=== PATIENT | female | born 1960 | race Caucasian/White ===

== ENCOUNTER 2016-09-15 16:06 | Emergency (ER) | payer BC ==
[2016-09-15 16:13] VITALS: TEMP 97.9
[2016-09-15] MEDS ORDERED: FAMOTIDINE 20 MG/2 ML VIAL IV STA (16:20)
[2016-09-15] MEDS ORDERED: methylPREDNISolone SOD SUCCI 125 MG/2 ML VIAL IV STA (16:20)
--- NOTE | 2016-09-15 16:23 | ED ---
General Adult HPI - General Chief complaint: Allergic Reaction Stated complaint: Allergic Reaction Time Seen by Provider: 09/15/16 16:17 Source: patient, RN notes reviewed Mode of arrival: wheelchair Limitations: no limitations - History of Present Illness Initial comments: Patient is a 56-year-old female who presents emergency room today with a chief complaint of possible ALLERGIC reaction. She does admit that she's been on clindamycin for sinus infection over the last 4 days. Patient does admit that she began feeling chills earlier today and a "burning" type sensation in her back. She states she's had similar ALLERGIC reactions to antibiotics in the past. Patient states she did take 2 tabs of Benadryl and it showed Benadryl prior to arrival. She admits that she did give herself her EpiPen but is unsure if the entire dose was injected as is the first time that she had to use this type. Patient denies any other complaints or symptoms at this time. Patient denies any recent fever, chills, shortness of breath, chest pain, back pain, abdominal pain, nausea or vomiting, numbness or tingling, dysuria or hematuria, constipation or diarrhea, headaches or visual changes, or any other complaints. - Related Data Home Medications Medication Instructions Recorded Confirmed Mometasone/Formoterol [Dulera 100 2 puff INHALATION DAILY 09/15/16 09/15/16 Mcg/5 Mcg Inhaler] Previous Rx's Medication Instructions Recorded EPINEPHrine [Epipen 2-Subhash] 0.3 mg IM ONCE PRN #1 ml 09/15/16 methylPREDNISolone Dose Pack 4 mg PO DIRECTED #21 package 09/15/16 [Medrol Dose Pack] Allergies Allergy/AdvReac Type Severity Reaction Status Date / Time sulfamethoxazole Allergy Anaphylaxis Verified 09/15/16 16:13 [From Bactrim] trimethoprim [From Bactrim] Allergy Anaphylaxis Verified 09/15/16 16:13 Review of Systems ROS Statement: Those systems with pertinent positive or pertinent negative responses have been documented in the HPI. ROS Other: All systems not noted in ROS Statement are negative. Past Medical History Past Medical History: No Reported History History of Any Multi-Drug Resistant Organisms: None Reported Additional Past Surgical History / Comment(s): nasal Past Psychological History: No Psychological Hx Reported Smoking Status: Never smoker Past Alcohol Use History: Occasional Past Drug Use History: None Reported General Exam - General Exam Comments Initial Comments: General: The patient is awake and alert, in no distress, Anxious Eye: Pupils are equal, round and reactive to light, extra-ocular movements are intact. No nystagmus. There is normal conjunctiva bilaterally. No signs of icterus. Ears, nose, mouth and throat: There are moist mucous membranes and no oral lesions. Neck: The neck is supple, there is no tenderness or JVD. Cardiovascular: There is a regular rate and rhythm. No murmur, rub or gallop is appreciated. Respiratory: Lungs are clear to auscultation, respirations are non-labored, breath sounds are equal. No wheezes, stridor, rales, or rhonchi. Musculoskeletal: Normal ROM, no tenderness. Strength 5/5. Sensation intact. Pulses equal bilaterally 2+. Neurological: A&O x 3. CN II-XII intact, There are no obvious motor or sensory deficits. Coordination appears grossly intact. Speech is normal. Skin: Skin is warm and dry and no rashes or lesions are noted. Psychiatric: Cooperative, appropriate mood & affect, normal judgment. Limitations: no limitations Course Vital Signs 09/15/16 09/15/16 16:09 17:24 Temperature 97.9 F Pulse Rate 103 H 94 Respiratory 22 18 Rate Blood Pressure 119/69 106/58 O2 Sat by Pulse 97 98 Oximetry Medical Decision Making - Medical Decision Making Patient reexamined at this time shows no signs of distress. Patient feeling much better here in the emergency room. Vitals are stable. Patient will be discharged home. She is advised continue Benadryl every 6 hours to tabs. She is advised to use Pepcid [id number] 20 mg twice a day. Patient will be given a prescription for steroids to use if symptoms persist. She does have an appointment with her family doctor tomorrow. Patient also given a prescription for her EpiPen. She is advised return here to the emergency room symptoms return or increase or worsen or for any other concerns. A family member at bedside state understanding and are in agreement. Disposition Clinical Impression: Allergic reaction Disposition: HOME SELF-CARE Condition: Good Instructions: General Allergic Reaction (ED) Additional Instructions: Please continue Benadryl 2 tabs every 6 hours. Please use Pepcid 20 mg twice a day. Please use steroids as discussed and follow-up family doctor with scheduled appointment tomorrow. Please return here to the emergency room symptoms increase or worsen or for any other concerns. Prescriptions: EPINEPHrine [Epipen 2-Subhash] 0.3 mg IM ONCE PRN #1 ml PRN Reason: Allergic Reaction methylPREDNISolone Dose Pack [Medrol Dose Pack] 4 mg PO DIRECTED #21 package Time of Disposition: 17:35
[2016-09-15 17:25] VITALS: BP 106/58; PULSE 94; RESP 18
== END 2016-09-15 17:42 | disposition home or self-care (01) ==
LOC: EC 16:06
DX: T78.40XA Allergy, unspecified, initial encounter (principal); X58.XXXA Exposure to other specified factors, initial encounter; Z88.2 Allergy status to sulfonamides; Z88.1 Allergy status to other antibiotic agents
CPT/HCPCS: 99283; 96374; 96375; J2930

== ENCOUNTER → 2018-07-26 | Outpatient (CLI) | payer BC ==
[2018-07-26 11:16] LABS: Basophils # (A) 0.1 k/uL (0-0.2); Basophils % (A) 1 %; Eosinophils # (A) 0.4 k/uL (0-0.7); Eosinophils % (A) 5 %; HCT 42.7 % (34.0-46.0); HGB 13.7 gm/dL (11.4-16.0); Lymphocytes # (A) 1.6 k/uL (1.0-4.8); Lymphocytes % (A) 19 %; MCH 30.6 pg (25.0-35.0); MCV 95.4 fL (80.0-100.0); Mean Platelet Volume 7.3; Monocytes # (A) 0.4 k/uL (0-1.0); Monocytes % (A) 4 %; Neutrophils # (A) 5.9 k/uL (1.3-7.7); Neutrophils % (A) 70 %; Platelet Count 270 k/uL (150-450); RBC 4.48 m/uL (3.80-5.40); RDW 13.1 % (11.5-15.5); WBC 8.4 k/uL (3.8-10.6)
[2018-07-26 12:51] LABS: Erythrocyte Sedimentation Rate 6 mm/hr (0-20)
[2018-07-26 16:41] LABS: Rheumatoid Factor 7 IU/mL (0-15)
== END | disposition home or self-care (01) ==
LOC: LABWHC1 09:29
PROVIDERS: ATTEND Otolaryngology
DX: R53.83 Other fatigue (principal); T50.905A Adverse effect of unspecified drugs, medicaments and biological substances, initial encounter
CPT/HCPCS: 36415; 85025; 85652; 86038; 86235; 86431

== ENCOUNTER → 2018-10-12 | Outpatient (CLI) | payer BC ==
[2018-10-12 11:12] LABS: HCT 43.7 % (34.0-46.0); HGB 13.5 gm/dL (11.4-16.0); Hypochromasia Slight; MCH 29.8 pg (25.0-35.0); Mean Platelet Volume 7.3; Platelet Count 274 k/uL (150-450); RBC 4.55 m/uL (3.80-5.40); WBC 8.2 k/uL (3.8-10.6)
[2018-10-12 17:40] LABS: Potassium 4.3 mmol/L (3.5-5.5)
== END | disposition home or self-care (01) ==
LOC: LABWHC1 10:13
PROVIDERS: ATTEND Internal Medicine Cardiovascular Disease
DX: R00.2 Palpitations (principal)
CPT/HCPCS: 36415; 80051; 82565; 84443; 84520; 85027

== ENCOUNTER → 2019-01-06 | Outpatient (CLI) | payer BC ==
[2019-01-06 12:43] LABS: Basophils # (A) 0.1 k/uL (0-0.2); Basophils % (A) 1 %; Eosinophils # (A) 0.6 k/uL (0-0.7); Eosinophils % (A) 9 %; HGB 13.3 gm/dL (11.4-16.0); Lymphocytes # (A) 1.7 k/uL (1.0-4.8); Lymphocytes % (A) 26 %; MCH 29.4 pg (25.0-35.0); MCHC 30.9 g/dL (31.0-37.0); MCV 95.1 fL (80.0-100.0); Mean Platelet Volume 7.2; Monocytes # (A) 0.4 k/uL (0-1.0); Monocytes % (A) 6 %; Neutrophils # (A) 3.7 k/uL (1.3-7.7); Neutrophils % (A) 57 %; Platelet Count 254 k/uL (150-450); RBC 4.52 m/uL (3.80-5.40); RDW 13.6 % (11.5-15.5); WBC 6.5 k/uL (3.8-10.6)
== END | disposition home or self-care (01) ==
LOC: LABWHC1 11:59
PROVIDERS: ATTEND Allergy & Immunology
DX: J45.20 Mild intermittent asthma, uncomplicated (principal)
CPT/HCPCS: 36415; 83520; 85025

== ENCOUNTER 2020-08-09 17:35 | Emergency (ER) | payer BC ==
[2020-08-09 17:41] VITALS: RESP 18
--- NOTE | 2020-08-09 18:24 | ED ---
General Adult HPI - General Chief complaint: GI Bleed Stated complaint: Blood in stool/Weakness Time Seen by Provider: 08/09/20 17:43 Source: patient, RN notes reviewed, old records reviewed Mode of arrival: ambulatory Limitations: no limitations - History of Present Illness Initial comments: 60-year-old female presenting for evaluation of diffuse abdominal pain and rectal bleeding. Patient states she has had intermittent bright red rectal bleeding for the past 6 weeks. She was seen by her primary care physician and had laboratory testing done yesterday. She states that she is planning to receive a colonoscopy on an outpatient basis she does not have this scheduled. She denies anticoagulation. Denies fever. She does have a 10 pound weight loss but states this was intentional. No previous history of colon cancer. She has a remote history of colitis. - Related Data Home Medications Medication Instructions Recorded Confirmed Albuterol Nebulized [Ventolin 2.5 mg INHALATION RT-QID PRN 08/09/20 08/09/20 Nebulized] Denosumab [Prolia] 60 mg SQ Q180D 08/09/20 08/09/20 EPINEPHrine [Epipen 2-Subhash] 0.3 mg IM ONCE PRN 08/09/20 08/09/20 Fluticasone Nasal [place] [Flonase 2 spr EA NOSTRIL DAILY 08/09/20 08/09/20 Nasal [place]] Mometasone/Formoterol [Dulera 200 2 puff INHALATION RT-BID 08/09/20 08/09/20 Mcg-5 Mcg Inhaler] Pentosan Polysulfate Sodium 100 mg PO DAILY 08/09/20 08/09/20 [Elmiron] Pentosan Polysulfate Sodium 200 mg PO HS 08/09/20 08/09/20 [Elmiron] Allergies Allergy/AdvReac Type Severity Reaction Status Date / Time basil Allergy Allergy Verified 08/09/20 18:47 Testing cabbage Allergy Allergy Verified 08/09/20 18:47 Testing Cauliflower Allergy Allergy Verified 08/09/20 18:47 Testing clindamycin Allergy Anaphylaxis Verified 08/09/20 18:47 coconut Allergy Allergy Verified 08/09/20 18:47 Testing garlic Allergy Allergy Verified 08/09/20 18:47 Testing mold Allergy Cough Verified 08/09/20 18:47 Penicillins Allergy Anaphylaxis Verified 08/09/20 18:47 pollen extracts Allergy Cough Verified 08/09/20 18:47 ragweed pollen Allergy Cough Verified 08/09/20 18:47 shellfish derived [Crab] Allergy Allergy Verified 08/09/20 18:47 Testing starch Allergy Allergy Verified 08/09/20 18:47 Testing Sulfa (Sulfonamide Allergy Anaphylaxis Verified 08/09/20 18:47 Antibiotics) sulfamethoxazole Allergy Anaphylaxis Verified 08/09/20 18:47 [From Bactrim] trimethoprim [From Bactrim] Allergy Anaphylaxis Verified 08/09/20 18:47 walnut Allergy Allergy Verified 08/09/20 18:47 Testing yeast, dried Allergy Allergy Verified 08/09/20 18:47 Testing [place] leaf Allergy Allergy Uncoded 08/09/20 18:47 Testing travon Allergy Allergy Uncoded 08/09/20 18:47 Testing caulk Allergy Allergy Uncoded 08/09/20 18:47 Testing pullularia Allergy Allergy Uncoded 08/09/20 18:47 Testing rhizopus Allergy Allergy Uncoded 08/09/20 18:47 Testing gu[place] cheese Allergy Allergy Uncoded 08/09/20 18:47 Testing white potato Allergy Allergy Uncoded 08/09/20 18:47 Testing Review of Systems ROS Statement: Those systems with pertinent positive or pertinent negative responses have been documented in the HPI. ROS Other: All systems not noted in ROS Statement are negative. Past Medical History Past Medical History: Asthma History of Any Multi-Drug Resistant Organisms: None Reported Additional Past Surgical History / Comment(s): nasal Past Psychological History: No Psychological Hx Reported Smoking Status: Never smoker Past Alcohol Use History: Occasional Past Drug Use History: None Reported General Exam Limitations: no limitations General appearance: alert, in no apparent distress Head exam: Present: atraumatic, normocephalic Eye exam: Present: normal appearance, PERRL ENT exam: Present: normal exam Neck exam: Present: normal inspection. Absent: tenderness, meningismus Respiratory exam: Present: normal lung sounds bilaterally. Absent: respiratory distress, wheezes Cardiovascular Exam: Present: regular rate, normal rhythm GI/Abdominal exam: Present: soft. Absent: distended, tenderness Rectal exam: Present: normal inspection. Absent: black stool, bloody stool Extremities exam: Present: normal inspection, normal capillary refill. Absent: pedal edema Neurological exam: Present: alert, oriented X3, CN II-XII intact. Absent: motor sensory deficit Psychiatric exam: Present: normal affect, normal mood Skin exam: Present: warm, dry, intact. Absent: cyanosis, diaphoretic Course Vital Signs 08/09/20 17:37 Temperature 98.1 F Pulse Rate 78 Respiratory 18 Rate Blood Pressure 117/79 O2 Sat by Pulse 100 Oximetry Medical Decision Making - Medical Decision Making 60-year-old female with 6 weeks of intermittent rectal bleeding, previous history of colitis and generalized abdominal pain. Patient well-appearing with stable vitals. Rectal exam reveals no acute bleeding, no melanotic stool, no hemorrhoids. She has a stable hemoglobin at 13.2, normal CBC, CT is performed which shows cholelithiasis with no other acute findings. I do recommend this patient follow-up with gastroenterology for colonoscopy. She will return to emergency department with worsening or changing symptoms. - Lab Data Result diagrams: 08/09/20 18:11 08/09/20 18:11 Lab Results 08/09/20 08/09/20 08/09/20 Range/Units 16:09 18:11 18:11 WBC 10.1 (3.8-10.6) k/uL RBC 4.23 (3.80-5.40) m/uL Hgb 13.2 (11.4-16.0) gm/dL Hct 39.7 (34.0-46.0) % MCV 93.7 (80.0-100.0) fL MCH 31.1 (25.0-35.0) pg MCHC 33.2 (31.0-37.0) g/dL RDW 12.7 (11.5-15.5) % Plt Count 262 (150-450) k/uL MPV 7.7 Neutrophils % 71 % Lymphocytes % 19 % Monocytes % 4 % Eosinophils % 4 % Basophils % 0 % Neutrophils # 7.2 (1.3-7.7) k/uL Lymphocytes # 1.9 (1.0-4.8) k/uL Monocytes # 0.4 (0-1.0) k/uL Eosinophils # 0.4 (0-0.7) k/uL Basophils # 0.0 (0-0.2) k/uL PT 10.3 (9.0-12.0) sec INR 1.0 (<1.2) APTT 21.1 L (22.0-30.0) sec Sodium (137-145) mmol/L Potassium (3.5-5.1) mmol/L Chloride (98-107) mmol/L Carbon Dioxide (22-30) mmol/L Anion Gap mmol/L BUN (7-17) mg/dL Creatinine (0.52-1.04) mg/dL Est GFR (CKD-EPI)AfAm (>60 ml/min/1.73 sqM) Est GFR (CKD-EPI)NonAf (>60 ml/min/1.73 sqM) Glucose (74-99) mg/dL Plasma Lactic Acid Aldo (0.7-2.0) mmol/L Calcium (8.4-10.2) mg/dL Magnesium (1.6-2.3) mg/dL Total Bilirubin (0.2-1.3) mg/dL AST (14-36) U/L ALT (4-34) U/L Alkaline Phosphatase (38-126) U/L Total Protein (6.3-8.2) g/dL Albumin (3.5-5.0) g/dL Blood Type B Positive Blood Type Confirm Blood Type Recheck No Previous Record Bld Type Recheck Status CABO Indicated Antibody Screen NEGATIVE Spec Expiration Date 08/12/2020 - 230808/09/20 08/09/20 08/09/20 Range/Units 18:11 18:11 18:15 WBC (3.8-10.6) k/uL RBC (3.80-5.40) m/uL Hgb (11.4-16.0) gm/dL Hct (34.0-46.0) % MCV (80.0-100.0) fL MCH (25.0-35.0) pg MCHC (31.0-37.0) g/dL RDW (11.5-15.5) % Plt Count (150-450) k/uL MPV Neutrophils % % Lymphocytes % % Monocytes % % Eosinophils % % Basophils % % Neutrophils # (1.3-7.7) k/uL Lymphocytes # (1.0-4.8) k/uL Monocytes # (0-1.0) k/uL Eosinophils # (0-0.7) k/uL Basophils # (0-0.2) k/uL PT (9.0-12.0) sec INR (<1.2) APTT (22.0-30.0) sec Sodium 138 (137-145) mmol/L Potassium 4.5 (3.5-5.1) mmol/L Chloride 110 H (98-107) mmol/L Carbon Dioxide 24 (22-30) mmol/L Anion Gap 4 mmol/L BUN 15 (7-17) mg/dL Creatinine 0.60 (0.52-1.04) mg/dL Est GFR (CKD-EPI)AfAm >90 (>60 ml/min/1.73 sqM) Est GFR (CKD-EPI)NonAf >90 (>60 ml/min/1.73 sqM) Glucose 111 H (74-99) mg/dL Plasma Lactic Acid Aldo 1.0 (0.7-2.0) mmol/L Calcium 9.6 (8.4-10.2) mg/dL Magnesium 2.3 (1.6-2.3) mg/dL Total Bilirubin 0.3 (0.2-1.3) mg/dL AST 24 (14-36) U/L ALT 16 (4-34) U/L Alkaline Phosphatase 62 (38-126) U/L Total Protein 7.0 (6.3-8.2) g/dL Albumin 4.3 (3.5-5.0) g/dL Blood Type Blood Type Confirm B Positive Blood Type Recheck Bld Type Recheck Status Antibody Screen Spec Expiration Date Disposition Clinical Impression: Abdominal pain, Rectal bleeding Disposition: HOME SELF-CARE Condition: Good Instructions (If sedation given, give patient instructions): Abdominal Pain (ED), Rectal Bleeding (ED) Is patient prescribed a controlled substance at d/c from ED?: No Referrals: Omar Durbin MD [Primary Care Provider] - 1-2 days Nakul Koenig MD [STAFF PHYSICIAN] - 1-2 days Time of Disposition: 19:48
[2020-08-09 18:31] LABS: Basophils % (A) 0 %; Eosinophils # (A) 0.4 k/uL (0-0.7); Eosinophils % (A) 4 %; HCT 39.7 % (34.0-46.0); HGB 13.2 gm/dL (11.4-16.0); Lymphocytes # (A) 1.9 k/uL (1.0-4.8); Lymphocytes % (A) 19 %; MCH 31.1 pg (25.0-35.0); MCHC 33.2 g/dL (31.0-37.0); MCV 93.7 fL (80.0-100.0); Mean Platelet Volume 7.7; Monocytes # (A) 0.4 k/uL (0-1.0); Monocytes % (A) 4 %; Neutrophils # (A) 7.2 k/uL (1.3-7.7); Neutrophils % (A) 71 %; Platelet Count 262 k/uL (150-450); RBC 4.23 m/uL (3.80-5.40); RDW 12.7 % (11.5-15.5); WBC 10.1 k/uL (3.8-10.6)
[2020-08-09 18:45] LABS: ALT 16 U/L (4-34); AST 24 U/L (14-36); African American GFR (CKD) >90 (>60 ml/min/1.73 sqM); Albumin 4.3 g/dL (3.5-5.0); Alkaline Phosphatase 62 U/L (38-126); Anion Gap 4 mmol/L; Blood Urea Nitrogen 15 mg/dL (7-17); Calcium 9.6 mg/dL (8.4-10.2); Carbon Dioxide 24 mmol/L (22-30); Chloride 110 mmol/L (98-107); Glucose 111 mg/dL (74-99); Magnesium 2.3 mg/dL (1.6-2.3); Non-African American GFR(CKD) >90 (>60 ml/min/1.73 sqM); Potassium 4.5 mmol/L (3.5-5.1); Sodium 138 mmol/L (137-145); Total Bilirubin 0.3 mg/dL (0.2-1.3)
[2020-08-09 18:57] LABS: Prothrombin Time 10.3 sec (9.0-12.0)
[2020-08-09 18:58] LABS: Partial Thromboplastin Time 21.1 sec (22.0-30.0)
--- NOTE | 2020-08-09 19:42 | CT ---
EXAMINATION TYPE: CT abdomen pelvis w con DATE OF EXAM: 08/09/2020 COMPARISON: None HISTORY: Abdomen pain, rectal bleeding. CT DLP: 724.7 mGycm Automated exposure control for dose reduction was used. CONTRAST: Performed with IV Contrast, patient injected with 100 mL of Isovue 300. Images obtained from the diaphragm to the floor the pelvis with IV contrast. There is minimal subsegmental atelectasis left lung base. Heart size is normal. There is no pericardi al effusion. There are small hepatic cysts in the anterior right lobe of the liver. There is 2.5 cm cyst in the le ft lobe of the liver. There appears to be enlarged cholesterol gallstones. Spleen is intact. Stomach is intact. There is no evidence of pancreatic mass. The bile ducts are not dilated. There is no adrenal mass. Kidneys show satisfactory contrast opacification. There is no hydronephrosi s. Delayed images show normal renal excretion. There is no retroperitoneal adenopathy. Bladder disten ds smoothly. There is no inguinal hernia. There is no free fluid in the pelvis. There is no evidence of a pelvic mass. There is no mesenteric edema. There is no ascites or free air. There is no bowel obstruction. I see n o intestinal wall thickening. Appendix appears normal. Uterus is retroverted. Lumbar vertebra have no rmal alignment. There is no compression fracture. Bony pelvis appears intact. IMPRESSION: Cholelithiasis. No dilated ducts. No acute abnormality of the abdomen pelvis. I do not see a cause fo r rectal bleeding.
[2020-08-09 20:14] VITALS: BP 127/74; PULSE 61; TEMP 98.2
== END 2020-08-09 20:14 | disposition home or self-care (01) ==
LOC: EC 17:35
DX: K62.5 Hemorrhage of anus and rectum (principal); K80.20 Calculus of gallbladder without cholecystitis without obstruction; J45.909 Unspecified asthma, uncomplicated; Z79.51 Long term (current) use of inhaled steroids; Z79.899 Other long term (current) drug therapy; Z91.018 Allergy to other foods; Z88.1 Allergy status to other antibiotic agents; Z91.048 Other nonmedicinal substance allergy status; Z88.0 Allergy status to penicillin; Z91.013 Allergy to seafood; Z88.2 Allergy status to sulfonamides; Z91.09 Other allergy status, other than to drugs and biological substances
CPT/HCPCS: 36415; 86900; 86901; 80053; 83605; 83735; 85025; 85610; 85730; 86850; 74177; 99284; Q9967

== ENCOUNTER 2020-09-12 09:29 | Day surgery (SDC) | payer BC ==
[2020-09-11 08:52] VITALS: BMI 23.3
[~2020-09-12 09:29] MED LIST: LACTATED RINGERS 1,000 ML IV SCH; LIDOCAINE 1% (10MG/ML) FOR IV START INTRADERMA PRN
[2020-09-12] MEDS ORDERED: LACTATED RINGERS 1,000 ML IV ONE (10:00)
[2020-09-12] MEDS ORDERED: LIDOCAINE 1% (10MG/ML) FOR IV START INTRADERMA ONE (10:00)
[2020-09-12 10:01] VITALS: RESP 16; TEMP 97.4
[2020-09-12] MEDS ORDERED: LIDOCAINE 1% INJ 10MG/ML (20 ML MDV) ONE (10:23)
[2020-09-12] MEDS ORDERED: PROPOFOL 10 MG/ML 20 ML VIAL IV ONE (10:23)
--- NOTE | 2020-09-12 10:41 | P.PCN ---
Date of Procedure: 09/12/20 Procedure(s) Performed: Brief history: Patient is a pleasant 60-year-old white female scheduled for an elective upper endoscopy as well as colonoscopy as a part of evaluation of GERD and Hemoccult- positive stool. Procedure performed: Esophagogastroduodenoscopy biopsy Colonoscopy Preoperative diagnosis: GERD Hemoccult-positive stool [place] [facility] [place]: After informed consent was obtained from the patient was brought into the endoscopy unit and IV sedation was administered by anesthesia under continuous monitoring. Initially upper endoscopy was done. The Olympus GF 160 video endoscope was inserted inserted into the mouth and esophagus intubated without any difficulty and was gradually advanced into the stomach and duodenum and carefully examined. The bulb and second part of the duodenum appeared normal. The scope was then withdrawn into the stomach adequately insufflated with air and upon careful examination the antrum and body, cardia and fundus appeared normal. The scope was then withdrawn into the esophagus. The GE junction was located at 40 cm to the incisors. Small sliding type hiatal hernia noted.. There was a 2 mm tongue of Lima's appearing mucosa just proximal to the GE junction which was biopsied. Rest of the esophagus appeared normal. Patient tolerated the procedure well. At this time the patient continued to remain sedation. Initial digital rectal examination was normal. Olympus CF 160 video colonoscope was then inserted into the rectum and gradually advanced to the cecum without any difficulty. Careful examination was performed as the scope was gradually being withdrawn. The prep was excellent. The cecum, ascending colon, transverse colon, descending colon, sigmoid colon and rectum appeared normal. Retroflexion was performed in the rectum and no lesions were noted. Patient tolerated the procedure well. Impression: 1. Upper endoscopy revealed a small hiatal hernia and a 2 mm tongue of Lima's appearing mucosa that was biopsied. 2 Colonoscopy was essentially within normal limits with no evidence of colitis or colorectal neoplasia Recommendations: Findings of this examination were discussed with the patient as well as her family. She was advised to continue with Prilosec 20 mg daily and follow antireflux measures. She will follow with the biopsy results. She was advised to have a repeat screening colonoscopy in 10 years.
[2020-09-12 11:01] VITALS: BP 102/65; PULSE 59
== END 2020-09-12 11:14 | disposition home or self-care (01) ==
LOC: ORWHC2ENDO 09:29
PROVIDERS: ATTEND Internal Medicine Gastroenterology
DX: K20.0 Eosinophilic esophagitis (principal); K44.9 Diaphragmatic hernia without obstruction or gangrene; J45.909 Unspecified asthma, uncomplicated; Z79.51 Long term (current) use of inhaled steroids; Z79.899 Other long term (current) drug therapy
CPT/HCPCS: 88305; 45378; 43239; J2001; J2704

== ENCOUNTER 2020-10-23 09:14 | Observation (INO) | payer BC ==
[2020-10-23] MEDS ORDERED: ASPIRIN 81 MG PO STA (09:43)
--- NOTE | 2020-10-23 09:50 | ED ---
General Adult HPI - General Chief complaint: Chest Pain Stated complaint: Chest discomfort Time Seen by Provider: 10/23/20 09:24 Source: patient, RN notes reviewed Mode of arrival: ambulatory Limitations: no limitations - History of Present Illness Initial comments: Patient is a pleasant 60-year-old female presenting to the emergency Department with complaints of chest discomfort. Onset of symptoms was around 7:30 this morning. Patient was not exerting herself. Patient had discomfort in her chest that was difficult to describe, discomfort was rated 5/10. No associated dyspnea, nausea, or diaphoresis. Patient did feel lightheaded at that time. Patient only now feels a little bit fatigued. No history of similar symptoms previously. Patient does state that sometimes she gets left leg discomfort, somewhat chronically associated with ALLERGIES. - Related Data Home Medications Medication Instructions Recorded Confirmed Denosumab [Prolia] 60 mg SQ Q180D 08/09/20 10/23/20 EPINEPHrine [Epipen 2-Subhash] 0.3 mg IM ONCE PRN 08/09/20 10/23/20 Mometasone/Formoterol [Dulera 200 2 puff INHALATION RT-BID 08/09/20 10/23/20 Mcg-5 Mcg Inhaler] Pentosan Polysulfate Sodium 100 mg PO DAILY 08/09/20 10/23/20 [Elmiron] Pentosan Polysulfate Sodium 200 mg PO HS 08/09/20 10/23/20 [Elmiron] Cyanocobalamin (Vitamin B-12) 1,000 mcg PO DAILY 10/23/20 10/23/20 [Vitamin B-12] Famotidine [Pepcid] 20 mg PO BID 10/23/20 10/23/20 Loratadine [Alavert] 10 mg PO DAILY 10/23/20 10/23/20 Multivitamins, Thera [Multivitamin 1 tab PO DAILY 10/23/20 10/23/20 (formulary)] Allergies Allergy/AdvReac Type Severity Reaction Status Date / Time basil Allergy Allergy Verified 10/23/20 10:58 Testing cabbage Allergy Allergy Verified 10/23/20 10:58 Testing Cauliflower Allergy Allergy Verified 10/23/20 10:58 Testing clindamycin Allergy Anaphylaxis Verified 10/23/20 10:58 coconut Allergy Allergy Verified 10/23/20 10:58 Testing garlic Allergy Allergy Verified 10/23/20 10:58 Testing mold Allergy Cough Verified 10/23/20 10:58 Penicillins Allergy Anaphylaxis Verified 10/23/20 10:58 pollen extracts Allergy Cough Verified 10/23/20 10:58 ragweed pollen Allergy Cough Verified 10/23/20 10:58 shellfish derived [Crab] Allergy Allergy Verified 10/23/20 10:58 Testing starch Allergy Allergy Verified 10/23/20 10:58 Testing Sulfa (Sulfonamide Allergy Anaphylaxis Verified 10/23/20 10:58 Antibiotics) sulfamethoxazole Allergy Anaphylaxis Verified 10/23/20 10:58 [From Bactrim] trimethoprim [From Bactrim] Allergy Anaphylaxis Verified 10/23/20 10:58 walnut Allergy Allergy Verified 10/23/20 10:58 Testing yeast, dried Allergy Allergy Verified 10/23/20 10:58 Testing bay leaf Allergy Allergy Uncoded 10/23/20 10:58 Testing travon Allergy Allergy Uncoded 10/23/20 10:58 Testing caulk Allergy Allergy Uncoded 10/23/20 10:58 Testing pullularia Allergy Allergy Uncoded 10/23/20 10:58 Testing rhizopus Allergy Allergy Uncoded 10/23/20 10:58 Testing bahraini cheese Allergy Allergy Uncoded 10/23/20 10:58 Testing white potato Allergy Allergy Uncoded 10/23/20 10:58 Testing Review of Systems ROS Statement: Those systems with pertinent positive or pertinent negative responses have been documented in the HPI. ROS Other: All systems not noted in ROS Statement are negative. Constitutional: Denies: fever Eyes: Denies: eye pain ENT: Denies: ear pain Respiratory: Denies: cough Cardiovascular: Reports: as per HPI, chest pain Endocrine: Reports: fatigue Gastrointestinal: Denies: abdominal pain Genitourinary: Denies: urgency Musculoskeletal: Denies: back pain Skin: Denies: rash Neurological: Denies: weakness Past Medical History Past Medical History: Asthma Additional Past Medical History / Comment(s): BLOOD IN STOOL History of Any Multi-Drug Resistant Organisms: None Reported Additional Past Surgical History / Comment(s): nasal SX Past Anesthesia/Blood Transfusion Reactions: No Reported Reaction Past Psychological History: No Psychological Hx Reported Smoking Status: Never smoker Past Alcohol Use History: None Reported Past Drug Use History: None Reported - Past Family History Mother Family Medical History: No Reported History General Exam Limitations: no limitations General appearance: alert, in no apparent distress Head exam: Present: atraumatic Eye exam: Present: normal appearance Neck exam: Present: normal inspection Respiratory exam: Present: normal lung sounds bilaterally. Absent: chest wall tenderness Cardiovascular Exam: Present: regular rate, normal rhythm, normal heart sounds Expanded Peripheral pulses: 2+: Radial (R), Radial (L), Posterior Tibialis (R), Posterior Tibialis (L) GI/Abdominal exam: Present: soft. Absent: distended, tenderness Extremities exam: Present: calf tenderness (Minimal discomfort left calf). 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 [place] 142. QRS 106. QT 392. QTC 41. Left axis. Incomplete right bundle-branch block. No acute ST change. Medical Decision Making - Medical Decision Making Patient reevaluated and resting comfortably in bed. Patient updated on results and plan. Dr. Madrigal has been paged for admission, covering for Dr. Durbin. - Lab Data Result diagrams: 10/23/20 09:48 10/23/20 09:48 Lab Results 10/23/20 10/23/20 10/23/20 Range/Units 09:48 09:48 09:48 WBC 5.2 (3.8-10.6) k/uL RBC 4.26 (3.80-5.40) m/uL Hgb 13.1 (11.4-16.0) gm/dL Hct 39.9 (34.0-46.0) % MCV 93.8 (80.0-100.0) fL MCH 30.8 (25.0-35.0) pg MCHC 32.9 (31.0-37.0) g/dL RDW 12.5 (11.5-15.5) % Plt Count 224 (150-450) k/uL MPV 7.7 Neutrophils % 72 % Lymphocytes % 16 % Monocytes % 6 % Eosinophils % 5 % Basophils % 1 % Neutrophils # 3.8 (1.3-7.7) k/uL Lymphocytes # 0.8 L (1.0-4.8) k/uL Monocytes # 0.3 (0-1.0) k/uL Eosinophils # 0.3 (0-0.7) k/uL Basophils # 0.0 (0-0.2) k/uL PT 10.5 (9.0-12.0) sec INR 1.0 (<1.2) APTT 22.5 (22.0-30.0) sec D-Dimer 0.21 (<0.60) mg/L FEU Sodium 137 (137-145) mmol/L Potassium 4.3 (3.5-5.1) mmol/L Chloride 105 (98-107) mmol/L Carbon Dioxide 26 (22-30) mmol/L Anion Gap 6 mmol/L BUN 17 (7-17) mg/dL Creatinine 0.70 (0.52-1.04) mg/dL Est GFR (CKD-EPI)AfAm >90 (>60 ml/min/1.73 sqM) Est GFR (CKD-EPI)NonAf >90 (>60 ml/min/1.73 sqM) Glucose 91 (74-99) mg/dL Calcium 9.5 (8.4-10.2) mg/dL Magnesium 2.1 (1.6-2.3) mg/dL Total Bilirubin 0.3 (0.2-1.3) mg/dL AST 25 (14-36) U/L ALT 16 (4-34) U/L Alkaline Phosphatase 51 (38-126) U/L Troponin I (0.000-0.034) ng/mL Total Protein 6.7 (6.3-8.2) g/dL Albumin 4.2 (3.5-5.0) g/dL 10/23/20 Range/Units 09:48 WBC (3.8-10.6) k/uL RBC (3.80-5.40) m/uL Hgb (11.4-16.0) gm/dL Hct (34.0-46.0) % MCV (80.0-100.0) fL MCH (25.0-35.0) pg MCHC (31.0-37.0) g/dL RDW (11.5-15.5) % Plt Count (150-450) k/uL MPV Neutrophils % % Lymphocytes % % Monocytes % % Eosinophils % % Basophils % % Neutrophils # (1.3-7.7) k/uL Lymphocytes # (1.0-4.8) k/uL Monocytes # (0-1.0) k/uL Eosinophils # (0-0.7) k/uL Basophils # (0-0.2) k/uL PT (9.0-12.0) sec INR (<1.2) APTT (22.0-30.0) sec D-Dimer (<0.60) mg/L FEU Sodium (137-145) mmol/L Potassium (3.5-5.1) mmol/L Chloride (98-107) mmol/L Carbon Dioxide (22-30) mmol/L Anion Gap mmol/L BUN (7-17) mg/dL Creatinine (0.52-1.04) mg/dL Est GFR (CKD-EPI)AfAm (>60 ml/min/1.73 sqM) Est GFR (CKD-EPI)NonAf (>60 ml/min/1.73 sqM) Glucose (74-99) mg/dL Calcium (8.4-10.2) mg/dL Magnesium (1.6-2.3) mg/dL Total Bilirubin (0.2-1.3) mg/dL AST (14-36) U/L ALT (4-34) U/L Alkaline Phosphatase (38-126) U/L Troponin I <0.012 (0.000-0.034) ng/mL Total Protein (6.3-8.2) g/dL Albumin (3.5-5.0) g/dL - Radiology Data Radiology results: report reviewed (Left leg ultrasound negative for DVT. Popliteal cyst is present.), image reviewed (Chest x-ray reveals no acute process) Disposition Clinical Impression: Chest pain Disposition: ADMITTED IP TO THIS HOSP Is patient prescribed a controlled substance at d/c from ED?: No Referrals: Omar Durbin MD [Primary Care Provider] - 1-2 days Decision Time: 11:22
[2020-10-23 10:02] LABS: Basophils % (A) 1 %; Eosinophils # (A) 0.3 k/uL (0-0.7); Eosinophils % (A) 5 %; HCT 39.9 % (34.0-46.0); HGB 13.1 gm/dL (11.4-16.0); Lymphocytes # (A) 0.8 k/uL (1.0-4.8); Lymphocytes % (A) 16 %; MCH 30.8 pg (25.0-35.0); MCHC 32.9 g/dL (31.0-37.0); MCV 93.8 fL (80.0-100.0); Mean Platelet Volume 7.7; Monocytes # (A) 0.3 k/uL (0-1.0); Monocytes % (A) 6 %; Neutrophils # (A) 3.8 k/uL (1.3-7.7); Neutrophils % (A) 72 %; Platelet Count 224 k/uL (150-450); RBC 4.26 m/uL (3.80-5.40); RDW 12.5 % (11.5-15.5); WBC 5.2 k/uL (3.8-10.6)
[2020-10-23 10:17] LABS: D-Dimer 0.21 mg/L FEU (<0.60); Partial Thromboplastin Time 22.5 sec (22.0-30.0); Prothrombin Time 10.5 sec (9.0-12.0)
[2020-10-23 10:28] LABS: ALT 16 U/L (4-34); AST 25 U/L (14-36); African American GFR (CKD) >90 (>60 ml/min/1.73 sqM); Albumin 4.2 g/dL (3.5-5.0); Alkaline Phosphatase 51 U/L (38-126); Anion Gap 6 mmol/L; Blood Urea Nitrogen 17 mg/dL (7-17); Calcium 9.5 mg/dL (8.4-10.2); Carbon Dioxide 26 mmol/L (22-30); Chloride 105 mmol/L (98-107); Glucose 91 mg/dL (74-99); Magnesium 2.1 mg/dL (1.6-2.3); Non-African American GFR(CKD) >90 (>60 ml/min/1.73 sqM); Potassium 4.3 mmol/L (3.5-5.1); Sodium 137 mmol/L (137-145); Total Bilirubin 0.3 mg/dL (0.2-1.3); Total Protein 6.7 g/dL (6.3-8.2)
--- NOTE | 2020-10-23 10:29 | XR ---
EXAMINATION TYPE: XR chest 2V DATE OF EXAM: 10/23/2020 COMPARISON: None INDICATION: Chest pain TECHNIQUE: Frontal and lateral views of the chest are obtained. FINDINGS: The heart size is normal. The pulmonary vasculature is normal. The lungs are clear. IMPRESSION: 1. No acute pulmonary process.
--- NOTE | 2020-10-23 10:46 | US ---
EXAMINATION TYPE: US venous doppler duplex LE LT DATE OF EXAM: 10/23/2020 10:33 AM COMPARISON: NONE CLINICAL HISTORY: pain. Left leg pain SIDE PERFORMED: Left TECHNIQUE: The lower extremity deep venous system is examined utilizing real time linear array sonog mauricio with graded compression, doppler sonography and color-flow sonography. VESSELS IMAGED: Common Femoral Vein Deep Femoral Vein Greater Saphenous Vein * Femoral Vein Popliteal Vein Small Saphenous Vein * Proximal Calf Veins (* superficial vessels) Left Leg: Negative for DVT, probable Vargas's Cyst left pop fossa= 3.0 x 0.9 x 1.2 cm IMPRESSION: 1. Left lower extremity ultrasound negative for deep venous thrombosis. 2. Popliteal cyst left posterior popliteal fossa
[2020-10-23] MEDS ORDERED: NITROGLYCERIN SL TABS 0.4 MG TAB SUBLINGUAL PRN (11:22)
[2020-10-23] MEDS ORDERED: FAMOTIDINE 20 MG TAB PO SCH (21:00)
[2020-10-23] MEDS ORDERED: PENTOSAN POLYSULFATE SODIUM 100 MG PO SCH (21:00)
--- NOTE | 2020-10-23 21:57 | P.HPIM ---
History of Present Illness H&P Date: 10/23/20 Chief Complaint: Feeling unwell History of presenting complaint: This is a very pleasant 60-year-old patient of Dr. Zev Reich. Chronic stable medical conditions include asthma, hiatal hernia, Chairez's esophagus, interstitial cystitis, osteoporosis. This a.m. she was with her son just felt be at. Like as if her blood pressure dropping. Normally her blood pressure was in the lower side. Also felt a burning sensation in the middle of the chest full code half an hour. [place] a bit dizzy and lightheaded. No perspiration. Did feel a bit tired. Has slight nausea. Decided to come in to rule out a cardiac cause. Otherwise patient other active. Chronic sinus tolerance. 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 Lives alone. No smoking or alcohol. 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 BMI 23.4, reclining in bed, comfortable. EYES: Pupils equal. Conjunctiva normal. HEENT: External appearance of nose and ears normal, oral cavity grossly normal. NECK: JVD not raised; masses not palpable. HEART: First and second heart sounds are normal; no edema. LUNGS: Respiratory rate normal; clear to auscultation. ABDOMEN: Soft, nontender, liver spleen not palpable, no masses palpable. PSYCH: Alert and oriented x3; mood and affect normal. NEUROLOGICAL: Cranial nerves grossly intact; no facial asymmetry, power and sensation grossly intact. LYMPHATICS: No lymph nodes palpable in the axilla and neck INVESTIGATIONS, reviewed in the clinical context: WBC 5.2 hemoglobin 13.1 platelets 224 potassium 4.3 creatinine 0.7 Troponin I 3 negative Coronavirus [PCR]-not detected EKG tracing personally reviewed by me-normal sinus rhythm, incomplete right bundle branch block Chest x-ray film personally reviewed by me-no obvious infiltrate Assessment and plan: -This is a patient is rather pretty active presents with an episode of just not feeling right has a blood pressure draining a burning sensation in the chest about half an hour. Troponins were negative. Patient's cardiac risk factors include age. -Moderate persistent asthma. Stable. Continue Dulera -Hiatal hernia -Chronic Chairez's esophagus, on Pepcid -Interstitial cystitis Care was discussed with the patient. Home medications to be resumed. Cardiology consulted. Patient will need a stress test. Past Medical History Past Medical History: Asthma, GI Bleed Additional Past Medical History / Comment(s): Hiatal hernia, chairez's esophagus, bleeding ulcer as a teen, lower GI bleed, interstitial cystitis, osteoporosis. History of Any Multi-Drug Resistant Organisms: None Reported Additional Past Surgical History / Comment(s): 09/12/20 EGD and colonoscopy, previous colonoscopy, sinus surgery. Past Anesthesia/Blood Transfusion Reactions: No Reported Reaction Smoking Status: Former smoker - Past Family History Mother Family Medical History: CVA/TIA, Hyperlipidemia Father Family Medical History: Dementia Additional Family Medical History / Comment(s): Father is . Medications and Allergies Home Medications Medication Instructions Recorded Confirmed Type Denosumab [Prolia] 60 mg SQ Q180D 08/09/20 10/23/20 History EPINEPHrine [Epipen 2-Subhash] 0.3 mg IM ONCE PRN 08/09/20 10/23/20 History Mometasone/Formoterol [Dulera 200 2 puff INHALATION RT-BID 08/09/20 10/23/20 History Mcg-5 Mcg Inhaler] Pentosan Polysulfate Sodium 100 mg PO DAILY 08/09/20 10/23/20 History [Elmiron] Pentosan Polysulfate Sodium 200 mg PO HS 08/09/20 10/23/20 History [Elmiron] Cyanocobalamin (Vitamin B-12) 1,000 mcg PO DAILY 10/23/20 10/23/20 History [Vitamin B-12] Famotidine [Pepcid] 20 mg PO BID 10/23/20 10/23/20 History Loratadine [Alavert] 10 mg PO DAILY 10/23/20 10/23/20 History Multivitamins, Thera [Multivitamin 1 tab PO DAILY 10/23/20 10/23/20 History (formulary)] Terbinafine [LamISIL] 250 mg PO DAILY 10/23/20 10/23/20 History Allergies Allergy/AdvReac Type Severity Reaction Status Date / Time basil Allergy Allergy Verified 10/23/20 10:58 Testing cabbage Allergy Allergy Verified 10/23/20 10:58 Testing Cauliflower Allergy Allergy Verified 10/23/20 10:58 Testing clindamycin Allergy Anaphylaxis Verified 10/23/20 10:58 coconut Allergy Allergy Verified 10/23/20 10:58 Testing garlic Allergy Allergy Verified 10/23/20 10:58 Testing mold Allergy Cough Verified 10/23/20 10:58 Penicillins Allergy Anaphylaxis Verified 10/23/20 10:58 pollen extracts Allergy Cough Verified 10/23/20 10:58 ragweed pollen Allergy Cough Verified 10/23/20 10:58 shellfish derived [Crab] Allergy Allergy Verified 10/23/20 10:58 Testing starch Allergy Allergy Verified 10/23/20 10:58 Testing Sulfa (Sulfonamide Allergy Anaphylaxis Verified 10/23/20 10:58 Antibiotics) sulfamethoxazole Allergy Anaphylaxis Verified 10/23/20 10:58 [From Bactrim] trimethoprim [From Bactrim] Allergy Anaphylaxis Verified 10/23/20 10:58 walnut Allergy Allergy Verified 10/23/20 10:58 Testing yeast, dried Allergy Allergy Verified 10/23/20 10:58 Testing bay leaf Allergy Allergy Uncoded 10/23/20 10:58 Testing travon Allergy Allergy Uncoded 10/23/20 10:58 Testing caulk Allergy Allergy Uncoded 10/23/20 10:58 Testing pullularia Allergy Allergy Uncoded 10/23/20 10:58 Testing rhizopus Allergy Allergy Uncoded 10/23/20 10:58 Testing saudi arabian cheese Allergy Allergy Uncoded 10/23/20 10:58 Testing white potato Allergy Allergy Uncoded 10/23/20 10:58 Testing Physical Exam Vitals: Vital Signs Temp Pulse Pulse Resp BP BP Pulse Ox 10/23/20 14:35 97.9 F 53 L 16 102/65 97 10/23/20 13:03 97.9 F 53 L 16 112/69 99 10/23/20 12:41 98.3 F 77 16 97/63 99 10/23/20 09:36 63 10/23/20 09:15 98.0 F 65 18 109/65 98 Intake and Output 10/23/20 10/23/20 10/23/20 06:59 14:59 22:59 Other: # Voids 1 Weight 65.771 kg Results CBC & Chem 7: 10/23/20 09:48 10/23/20 09:48 Labs: Abnormal Lab Results - Last 24 Hours (Table) 10/23/20 Range/Units 09:48 Lymphocytes # 0.8 L (1.0-4.8) k/uL Thrombosis Risk Factor Assmnt - Choose All That Apply Any of the Below Risk Factors Present?: Yes Each Factor Represents 1 point: Age 41-60 years Other Risk Factors: No Other congenital or acquired thrombophilia - If yes, enter type in comment: No Thrombosis Risk Factor Assessment Total Risk Factor Score: 1 Thrombosis Risk Factor Assessment Level: Low Risk
[2020-10-24] MEDS ORDERED: PANTOPRAZOLE 40 MG TABLET PO SCH (07:30)
--- NOTE | 2020-10-24 07:34 | ECHOF ---
Referral Reason:cp MEASUREMENTS -------- HEIGHT: 167.6 cm WEIGHT: 65.8 kg BP: RVIDd: 2.3 cm (< 3.3) IVSd: 0.7 cm (0.6 - 1.1) LVIDd: 4.6 cm (3.9 - 5.3) LVPWd: 0.9 cm (0.6 - 1.1) IVSs: 1.4 cm LVIDs: 3.2 cm LVPWs: 1.2 cm LAESV Index (A-L): 21.67 ml/m Ao Diam: 2.9 cm (2.0 - 3.7) AV Cusp: 1.8 cm (1.5 - 2.6) LA Diam: 2.2 cm (2.7 - 3.8) MV EXCURSION: 13.536 mm (> 18.000) MV EF SLOPE: 115 mm/s (70 - 150) EPSS: 1.4 cm MV E [place]: 0.68 m/s MV DecT: 194 ms MV A [place]: 0.32 m/s MV E/A Ratio: 2.13 RAP: 5.00 mmHg RVSP: 11.16 mmHg FINDINGS -------- This was a technically good study. The left ventricular size is normal. Left ventricular wall thickness is normal. Overall left vent ricular systolic function is normal with, an EF between 55 - 60 %. The diastolic filling pattern is normal for the age of the patient 8.08. The right ventricle is normal in size. The left atrial size is normal. Normal LA size by volume 22+/-6 ml/m2. The right atrial size is normal. The aortic valve is trileaflet and appears structurally normal. The mitral valve is normal. There is trace mitral regurgitation. The tricuspid valve appears structurally normal. Trace tricuspid regurgitation present. Right tc tricular systolic pressure is normal at < 35 mmHg. There is no pulmonic regurgitation present. The aortic root size is normal. Normal inferior vena cava with normal inspiratory collapse consistent with estimated right atrial pre ssure of 5 mmHg. There is no pericardial effusion. CONCLUSIONS -------- 1. The left ventricular size is normal. 2. Left ventricular wall thickness is normal. 3. Overall left ventricular systolic function is normal with, an EF between 55 - 60 %. 4. The diastolic filling pattern is normal for the age of the patient 8.08 5. There is trace mitral regurgitation. 6. Trace tricuspid regurgitation present. 7. There is no pericardial effusion. PROCESS DEVELOPMENT MANAGER: Cheyenne Elam RDCS
[2020-10-24 08:00] VITALS: RESP 16
[2020-10-24] MEDS ORDERED: LORATADINE 10 MG TAB PO SCH (09:00)
[2020-10-24] MEDS ORDERED: PENTOSAN POLYSULFATE SODIUM 100 MG PO SCH (09:00)
[2020-10-24] MEDS ORDERED: CYANOCOBALAMIN 500 MCG TAB PO SCH (09:00)
[2020-10-24] MEDS ORDERED: MULTIVITAMINS, THERA 1 EACH TAB PO SCH (09:00)
[2020-10-24] MEDS ORDERED: ASPIRIN 325 MG TAB PO SCH (09:00)
[2020-10-24 09:32] LABS: Chol/HDL Ratio 3.3; LDL Cholesterol,Calculated 109.4 mg/dL (0.0-131.0); VLDL Calculation 14.6 mg/dL (5.00-40.00)
--- NOTE | 2020-10-24 13:01 | P.CRDCN ---
History of Present Illness History of present illness: HISTORY OF PRESENTING ILLNESS This is a pleasant 60-year-old female past medical history significant for asthma, hiatal hernia, Chairez's esophagitis, interstitial cystitis, osteoporosis who presents secondary to chest pain. She admits that yesterday she had an episode of feeling lightheaded and flushed sensation feeling like she was going to pass out. She then sat down and noticed a chest pressure sensation. This lasted for a few hours yesterday. She admits she does have some heartburn which is chronic her this felt different. She had been feeling well however when she got to her hospital room she had woken up from a nap and then could not recall how she got there which is abnormal for her. She denies any weakness or numbness on one side or the other. Today she feels well and feels back to normal. DIAGNOSTICS EKG reveals incomplete right bundle branch block, normal sinus rhythm, left axis deviation. Chest xray no acute pulmonary process. Laboratory reviewed, white blood cell 5.2, hemoglobin 13.1, platelets 224, creatinine 0.7, troponins negative 3, d-dimer 0.21, LDL 109, HDL 54, triglycerides 73, total cholesterol 178. Current cardiac medications include aspirin 325 mg daily, nitroglycerin as needed. REVIEW OF SYSTEMS At the time of my exam: CONSTITUTIONAL: Denies fever or chills. CARDIOVASCULAR: +chest pain, no shortness of breath, no orthopnea, PND or pal pitations. +lightheaded RESPIRATORY: Denies cough. GASTROINTESTINAL: Denies abdominal pain, diarrhea, constipation, nausea or vomiting. MUSCULOSKELETAL: Denies myalgias. NEUROLOGIC: Denies numbness, tingling or weakness. ENDOCRINE: Denies fatigue, weight change, polydipsia or polyurina. GENITOURINARY: Denies burning, hematuria or urgency with micturation. HEMATOLOGIC: Denies history of anemia or bleeding. PHYSICAL EXAMINATION Vital signs reviewed. CONSTITUTIONAL: No apparent distress. HEENT: Head is normocephalic. Pupils are equal, round. Sclerae anicteric. Mucous membranes of the mouth are moist. No JVD. No carotid bruit. CHEST EXAMINATION: Lungs are clear to auscultation. No chest wall tenderness is noted on palpation or with deep breathing. HEART EXAMINATION: Regular rate and rhythm. S1, S2 heard. No murmurs, gallops or rub. ABDOMEN: Soft, nontender. Positive bowel sounds. EXTREMITIES: 2+ peripheral pulses, no lower extremity edema and no calf tenderness. NEUROLOGIC EXAMINATION: Patient is awake, alert and oriented x3. ASSESSMENT 1. Atypical chest pain, troponins negative 3 2. Feeling of lightheadedness however no syncope. Patient also became flushed. This may have been a vagal response. No significant arrhythmias noted. 3. History of asthma 4. Right bundle branch block PLAN We will check an echocardiogram as well as his exercise stress echo. If both are normal, patient may be discharged home from cardiology standpoint. If symptoms persisted may consider further outpatient monitoring however may have been a vagal reaction. Past Medical History Past Medical History: Asthma, GI Bleed Additional Past Medical History / Comment(s): Hiatal hernia, chairez's esophagus, bleeding ulcer as a teen, lower GI bleed, interstitial cystitis, osteoporosis. History of Any Multi-Drug Resistant Organisms: None Reported Additional Past Surgical History / Comment(s): 09/12/20 EGD and colonoscopy, previous colonoscopy, sinus surgery. Past Anesthesia/Blood Transfusion Reactions: No Reported Reaction Smoking Status: Former smoker - Past Family History Mother Family Medical History: CVA/TIA, Hyperlipidemia Father Family Medical History: Dementia Additional Family Medical History / Comment(s): Father is . Medications and Allergies Home Medications Medication Instructions Recorded Confirmed Type Denosumab [Prolia] 60 mg SQ Q180D 08/09/20 10/23/20 History EPINEPHrine [Epipen 2-Subhahs] 0.3 mg IM ONCE PRN 08/09/20 10/23/20 History Mometasone/Formoterol [Dulera 200 2 puff INHALATION RT-BID 08/09/20 10/23/20 History Mcg-5 Mcg Inhaler] Pentosan Polysulfate Sodium 100 mg PO DAILY 08/09/20 10/23/20 History [Elmiron] Pentosan Polysulfate Sodium 200 mg PO HS 08/09/20 10/23/20 History [Elmiron] Cyanocobalamin (Vitamin B-12) 1,000 mcg PO DAILY 10/23/20 10/23/20 History [Vitamin B-12] Famotidine [Pepcid] 20 mg PO BID 10/23/20 10/23/20 History Loratadine [Alavert] 10 mg PO DAILY 10/23/20 10/23/20 History Multivitamins, Thera [Multivitamin 1 tab PO DAILY 10/23/20 10/23/20 History (formulary)] Terbinafine [LamISIL] 250 mg PO DAILY 10/23/20 10/23/20 History Allergies Allergy/AdvReac Type Severity Reaction Status Date / Time basil Allergy Allergy Verified 10/23/20 10:58 Testing cabbage Allergy Allergy Verified 10/23/20 10:58 Testing Cauliflower Allergy Allergy Verified 10/23/20 10:58 Testing clindamycin Allergy Anaphylaxis Verified 10/23/20 10:58 coconut Allergy Allergy Verified 10/23/20 10:58 Testing garlic Allergy Allergy Verified 10/23/20 10:58 Testing mold Allergy Cough Verified 10/23/20 10:58 Penicillins Allergy Anaphylaxis Verified 10/23/20 10:58 pollen extracts Allergy Cough Verified 10/23/20 10:58 ragweed pollen Allergy Cough Verified 10/23/20 10:58 shellfish derived [Crab] Allergy Allergy Verified 10/23/20 10:58 Testing starch Allergy Allergy Verified 10/23/20 10:58 Testing Sulfa (Sulfonamide Allergy Anaphylaxis Verified 10/23/20 10:58 Antibiotics) sulfamethoxazole Allergy Anaphylaxis Verified 10/23/20 10:58 [From Bactrim] trimethoprim [From Bactrim] Allergy Anaphylaxis Verified 10/23/20 10:58 walnut Allergy Allergy Verified 10/23/20 10:58 Testing yeast, dried Allergy Allergy Verified 10/23/20 10:58 Testing bay leaf Allergy Allergy Uncoded 10/23/20 10:58 Testing travon Allergy Allergy Uncoded 10/23/20 10:58 Testing caulk Allergy Allergy Uncoded 10/23/20 10:58 Testing pullularia Allergy Allergy Uncoded 10/23/20 10:58 Testing rhizopus Allergy Allergy Uncoded 10/23/20 10:58 Testing irish cheese Allergy Allergy Uncoded 10/23/20 10:58 Testing white potato Allergy Allergy Uncoded 10/23/20 10:58 Testing Physical Exam Vitals: Vital Signs Temp Pulse Resp BP Pulse Ox 10/24/20 07:00 98.1 F 54 L 16 110/72 97 10/24/20 02:00 98.0 F 65 17 105/64 98 10/24/20 01:40 58 L 17 10/23/20 20:00 98.3 F 62 17 101/62 96 10/23/20 14:35 97.9 F 53 L 16 102/65 97 10/23/20 13:03 97.9 F 53 L 16 112/69 99 Intake and Output 10/23/20 10/24/20 10/24/20 22:59 06:59 14:59 Other: Voiding Method Toilet Toilet # Voids 2 2 Weight 65.77 kg Results 10/23/20 09:48 10/23/20 09:48 Cardiac Enzymes 10/23/20 10/23/20 Range/Units 12:44 16:48 Troponin I <0.012 <0.012 (0.000-0.034) ng/mL Lipids 10/23/20 Range/Units 09:48 Triglycerides 73.0 (0.0-149.0) mg/dL Cholesterol 178 (0-200) mg/dL HDL Cholesterol 54.0 (40.0-60.0) mg/dL Cholesterol/HDL Ratio 3.30 Current Medications Generic Name Dose Route Start Last Admin Trade Name Freq PRN Reason Stop Dose Admin Aspirin 325 mg 10/24/20 09:00 10/24/20 09:13 Aspirin 325 Mg Tab PO 325 mg DAILY HOLLY Administration Cyanocobalamin 1,000 mcg 10/24/20 09:00 10/24/20 09:12 Cyanocobalamin 500 Mcg Tab PO 1,000 mcg DAILY HOLLY Administration Loratadine 10 mg 10/24/20 09:00 10/24/20 09:12 Loratadine 10 Mg Tab PO 10 mg DAILY HOLLY Administration Multivitamins 1 each 10/24/20 09:00 10/24/20 09:12 Multivitamins, Thera 1 Each Tab PO 1 each DAILY HOLLY Administration Nitroglycerin 0.4 mg 10/23/20 11:22 Nitroglycerin Sl Tabs 0.4 Mg Tab SUBLINGUAL Q5M PRN Chest Pain Pentosan Polysulfate 100 mg 10/24/20 09:00 10/24/20 09:13 Sodium [Elmiron] PO Not Given 100 Mg Capsule DAILY HOLLY Pentosan Polysulfate 200 mg 10/23/20 21:00 10/23/20 20:47 Sodium [Elmiron] PO Not Given 100 Mg Capsule HS [facility] Pantoprazole Sodium 40 mg 10/24/20 07:30 10/24/20 09:12 Pantoprazole 40 Mg Tablet PO 40 mg AC-BID HOLLY Administration Intake and Output 10/23/20 10/24/20 10/24/20 22:59 06:59 14:59 Other: Voiding Method Toilet Toilet # Voids 2 2 Weight 65.77 kg Patient Weight 10/25/20 06:59 Weight 65.77 kg 10/23/20 09:48 10/23/20 09:48
--- NOTE | 2020-10-24 13:06 | P.STRESS ---
- Stress Test Note Stress Test Results/Findings: Exam Performed: stress echo exercise Exam Date: 10/24/20 Reason for Exam: Chest Pain Height: 5 ft 6 in Weight: 65.77 kg Protocol: Aaron Stage: 4 Duration of Exercise: 9:22 Resting Heart Rate: 63 Resting Blood Pressure: 104/73 Maximum Achieved Heart Rate: 152 Maximum Achieved Blood Pressure: 155/68 85% PMHR: 138 100% PMHR: 162 METS: 10.5 Technologist Comment: Stress Test Results/Findings: Patient underwent exercise stress echo with a Aaron protocol treadmill stress test. Patient exercised into Stage 4 for a total of 9 minutes and 22 seconds reaching a total of 10.5 METS. Patient's maximum heart rate was 152 which represented 94 % age-predicted maximum heart rate. Stress EKG portion: At baseline patient's EKG showed normal sinus rhythm, left axis deviation, incomplete right bundle branch block, nonspecific T-wave flattening in aVL. At peak exercise, EKG showed no significant change from baseline. Stress echo portion: 2-D echocardiogram was performed in the parasternal long, personal short, apical 2 and apical four-chamber views at rest, peak exercise and in recovery. At baseline, echocardiogram showed left ventricular ejection fraction 60 % without wall motion abnormalities. With peak exercise, echocardiogram shows improvement in left ventricular ejection fraction, increase contractility, decrease in left ventricular dimension without wall motion abnormalities consistent with a normal response to exercise. Conclusions: 1. Normal EKG and echo response to exercise without evidence of inducible ischemia. 2. Good exercise capacity.
[2020-10-24 14:43] VITALS: BP 114/72; PULSE 52; TEMP 97.9
--- NOTE | 2020-10-24 22:31 | P.DS ---
Providers Date of admission: 10/23/20 11:22 Expected date of discharge: 10/24/20 Attending physician: Reynaldo Madrigal Consults: 10/23/20 11:22 Consult Physician Urgent Consulting Provider: David Santana Consult Reason/Comments: cp Do you want consulting provider notified?: Yes [facility] Course: Chief Complaint: Feeling unwell History of presenting complaint: This is a very pleasant 60-year-old patient of Dr. Zev Reich. Chronic stable medical conditions include asthma, hiatal hernia, Lima's esophagus, interstitial cystitis, osteoporosis. This a.m. she was with her son just felt be at. Like as if her blood pressure dropping. Normally her blood pressure was in the lower side. Also felt a burning sensation in the middle of the chest full code half an hour. [place] a bit dizzy and lightheaded. No perspiration. Did feel a bit tired. Has slight nausea. Decided to come in to rule out a cardiac cause. Otherwise patient other active. Chronic sinus tolerance. 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 Exercise stress echocardiogram was negative for ischemia. Cleared by cardiology to go Consultation: Dr. Rodrigez from cardiology Past medical history to include: Asthma, hiatal hernia, Lima's esophagus, bleeding ulcers as a teenager, interstitial cystitis, Social history: . Lives alone. No smoking or alcohol. 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 Sitting up, comfortable. EYES: Pupils equal. Conjunctiva normal. HEENT: External appearance of nose and ears normal, oral cavity grossly normal. NECK: JVD not raised; masses not palpable. HEART: First and second heart sounds are normal; no edema. LUNGS: Respiratory rate normal; clear to auscultation. ABDOMEN: Soft, nontender, liver spleen not palpable, no masses palpable. PSYCH: Alert and oriented x3; mood and affect normal. INVESTIGATIONS, reviewed in the clinical context: WBC 5.2 hemoglobin 13.1 platelets 224 potassium 4.3 creatinine 0.7 Troponin I 3 negative Coronavirus [PCR]-not detected EKG tracing personally reviewed by me-normal sinus rhythm, incomplete right bundle branch block Chest x-ray film personally reviewed by me-no obvious infiltrate 2-D echocardiogram: EF 55-60% Assessment and plan: -Possible psychosomatic manifestation from work-related stress. Negative stress test -Moderate persistent asthma. Stable. Continue Dulera -Hiatal hernia -Chronic Lima's esophagus, on Pepcid -Interstitial cystitis Disposition: Home Plan - Discharge Summary Discharge Rx Participant: No New Discharge Prescriptions: No Action Pentosan Polysulfate Sodium [Elmiron] 200 mg PO HS EPINEPHrine [Epipen 2-Subhash] 0.3 mg IM ONCE PRN PRN Reason: Anaphylaxis Denosumab [Prolia] 60 mg SQ Q180D Pentosan Polysulfate Sodium [Elmiron] 100 mg PO DAILY Mometasone/Formoterol [Dulera 200 Mcg-5 Mcg Inhaler] 2 puff INHALATION RT-BID Multivitamins, Thera [Multivitamin (formulary)] 1 tab PO DAILY Cyanocobalamin (Vitamin B-12) [Vitamin B-12] 1,000 mcg PO DAILY Famotidine [Pepcid] 20 mg PO BID Loratadine [Alavert] 10 mg PO DAILY Terbinafine [LamISIL] 250 mg PO DAILY Discharge Medication List Denosumab [Prolia] 60 mg SQ Q180D 08/09/20 [History] EPINEPHrine [Epipen 2-Subhash] 0.3 mg IM ONCE PRN 08/09/20 [History] Mometasone/Formoterol [Dulera 200 Mcg-5 Mcg Inhaler] 2 puff INHALATION RT-BID 08/09/20 [History] Pentosan Polysulfate Sodium [Elmiron] 100 mg PO DAILY 08/09/20 [History] Pentosan Polysulfate Sodium [Elmiron] 200 mg PO HS 08/09/20 [History] Cyanocobalamin (Vitamin B-12) [Vitamin B-12] 1,000 mcg PO DAILY 10/23/20 [History] Famotidine [Pepcid] 20 mg PO BID 10/23/20 [History] Loratadine [Alavert] 10 mg PO DAILY 10/23/20 [History] Multivitamins, Thera [Multivitamin (formulary)] 1 tab PO DAILY 10/23/20 [History] Terbinafine [LamISIL] 250 mg PO DAILY 10/23/20 [History] Follow up Appointment(s)/Referral(s): Omar Durbin MD [Primary Care Provider] - 1-2 days Patient Instructions/Handouts: Chest Pain (DC) Discharge Disposition: HOME SELF-CARE
== END 2020-10-24 17:16 | disposition home or self-care (01) ==
LOC: EC 09:14 → 6NMEDSUR 11:22
PROVIDERS: ADMIT Hospitalist; ATTEND Hospitalist
DX: R07.89 Other chest pain (principal); R42 Dizziness and giddiness; J45.40 Moderate persistent asthma, uncomplicated; I45.10 Unspecified right bundle-branch block; M71.22 Synovial cyst of popliteal space [Baker], left knee; K22.70 Barrett's esophagus without dysplasia; K44.9 Diaphragmatic hernia without obstruction or gangrene; M81.0 Age-related osteoporosis without current pathological fracture; N30.10 Interstitial cystitis (chronic) without hematuria; Z79.51 Long term (current) use of inhaled steroids; Z79.899 Other long term (current) drug therapy; Z88.1 Allergy status to other antibiotic agents; Z88.0 Allergy status to penicillin; Z91.013 Allergy to seafood; Z88.2 Allergy status to sulfonamides; Z88.8 Allergy status to other drugs, medicaments and biological substances; Z91.018 Allergy to other foods; Z91.048 Other nonmedicinal substance allergy status; Z87.19 Personal history of other diseases of the digestive system; Z81.8 Family history of other mental and behavioral disorders; Z82.3 Family history of stroke; Z83.49 Family history of other endocrine, nutritional and metabolic diseases
CPT/HCPCS: 93005 ×2; 99285; 36415; 93306; 93351; 85379; 80061; 80053; 83735; 84484; 85025; 85610; 85730; 87635; 71046; 93971; G0378 ×2

== ENCOUNTER 2021-02-25 07:35 | Emergency (ER) | payer BC ==
[2021-02-25 07:41] VITALS: BP 109/70; PULSE 63; RESP 18; TEMP 97.6
[2021-02-25] MEDS ORDERED: LIDOCAINE 1% INJ 10MG/ML (20 ML MDV) SQ ONE (07:57)
[2021-02-25] MEDS ORDERED: BACITRACIN OINT 1 EACH PACKET TOPICAL ONE (07:57)
--- NOTE | 2021-02-25 08:44 | ED ---
Wound/Laceration HPI - General Chief Complaint: Wound/Laceration Stated Complaint: lt foot lac Time Seen by Provider: 02/25/21 07:42 Source: patient Mode of arrival: wheelchair Limitations: no limitations - History of Present Illness Initial Comments: Patient is a 60-year-old female presenting to the emergency Department with complaints of a laceration to the top of her left foot. Patient states she dropped her coffee cup on the top of her foot and has a laceration. She is not on blood thinners. Bleeding is controlled with bandage. Her tetanus vaccine is up-to-date. She has no further complaints. - Related Data Home Medications Medication Instructions Recorded Confirmed Denosumab [Prolia] 60 mg SQ Q180D 08/09/20 10/23/20 EPINEPHrine [Epipen 2-Subhash] 0.3 mg IM ONCE PRN 08/09/20 10/23/20 Mometasone/Formoterol [Dulera 200 2 puff INHALATION RT-BID 08/09/20 10/23/20 Mcg-5 Mcg Inhaler] Pentosan Polysulfate Sodium 100 mg PO DAILY 08/09/20 10/23/20 [Elmiron] Pentosan Polysulfate Sodium 200 mg PO HS 08/09/20 10/23/20 [Elmiron] Cyanocobalamin (Vitamin B-12) 1,000 mcg PO DAILY 10/23/20 10/23/20 [Vitamin B-12] Famotidine [Pepcid] 20 mg PO BID 10/23/20 10/23/20 Loratadine [Alavert] 10 mg PO DAILY 10/23/20 10/23/20 Multivitamins, Thera [Multivitamin 1 tab PO DAILY 10/23/20 10/23/20 (formulary)] Terbinafine [LamISIL] 250 mg PO DAILY 10/23/20 10/23/20 Allergies Allergy/AdvReac Type Severity Reaction Status Date / Time basil Allergy Allergy Verified 02/25/21 07:41 Testing cabbage Allergy Allergy Verified 02/25/21 07:41 Testing Cauliflower Allergy Allergy Verified 02/25/21 07:41 Testing clindamycin Allergy Anaphylaxis Verified 02/25/21 07:41 coconut Allergy Allergy Verified 02/25/21 07:41 Testing garlic Allergy Allergy Verified 02/25/21 07:41 Testing mold Allergy Cough Verified 02/25/21 07:41 Penicillins Allergy Anaphylaxis Verified 02/25/21 07:41 pollen extracts Allergy Cough Verified 02/25/21 07:41 ragweed pollen Allergy Cough Verified 02/25/21 07:41 shellfish derived [Crab] Allergy Allergy Verified 02/25/21 07:41 Testing starch Allergy Allergy Verified 02/25/21 07:41 Testing Sulfa (Sulfonamide Allergy Anaphylaxis Verified 02/25/21 07:41 Antibiotics) sulfamethoxazole Allergy Anaphylaxis Verified 02/25/21 07:41 [From Bactrim] trimethoprim [From Bactrim] Allergy Anaphylaxis Verified 02/25/21 07:41 walnut Allergy Allergy Verified 02/25/21 07:41 Testing yeast, dried Allergy Allergy Verified 02/25/21 07:41 Testing bay leaf Allergy Allergy Uncoded 02/25/21 07:41 Testing travon Allergy Allergy Uncoded 02/25/21 07:41 Testing caulk Allergy Allergy Uncoded 02/25/21 07:41 Testing pullularia Allergy Allergy Uncoded 02/25/21 07:41 Testing rhizopus Allergy Allergy Uncoded 02/25/21 07:41 Testing cook islander cheese Allergy Allergy Uncoded 02/25/21 07:41 Testing white potato Allergy Allergy Uncoded 02/25/21 07:41 Testing Review of Systems ROS Statement: Those systems with pertinent positive or pertinent negative responses have been documented in the HPI. ROS Other: All systems not noted in ROS Statement are negative. Past Medical History Past Medical History: Asthma, GI Bleed Additional Past Medical History / Comment(s): Hiatal hernia, chairez's esophagus, bleeding ulcer as a teen, lower GI bleed, interstitial cystitis, osteoporosis. History of Any Multi-Drug Resistant Organisms: None Reported Additional Past Surgical History / Comment(s): 09/12/20 EGD and colonoscopy, previous colonoscopy, sinus surgery. Past Anesthesia/Blood Transfusion Reactions: No Reported Reaction Past Psychological History: No Psychological Hx Reported Smoking Status: Former smoker - Past Family History Mother Family Medical History: CVA/TIA, Hyperlipidemia Father Family Medical History: Dementia Additional Family Medical History / Comment(s): Father is . General Exam - General Exam Comments Initial Comments: GENERAL: Patient is well-developed and well-nourished. Patient is nontoxic and in no acute distress. HEAD: Atraumatic, normocephalic. EYES: Pupils equal round and reactive to light, extraocular movements intact, sclera anicteric, conjunctiva are normal. Eyelids were unremarkable. LUNGS: Unlabored respirations. Breath sounds clear to auscultation bilaterally and equal. No wheezes rales or rhonchi. HEART: Regular rate and rhythm without murmurs, rubs or gallops. MUSCULOSKELETAL: She has full range of motion of all of her toes, and sensation is intact, neurovascular intact of the left foot. No clubbing or cyanosis. NEUROLOGICAL: Patient is alert and oriented x 3. SKIN: Warm, Dry, normal turgor, no rashes. Patient has a 1 cm laceration to the dorsum of her left foot. Bleeding is controlled. Limitations: no limitations Course Vital Signs 02/25/21 07:35 Temperature 97.6 F Pulse Rate 63 Respiratory 18 Rate Blood Pressure 109/70 O2 Sat by Pulse 97 Oximetry Procedures - Laceration Laceration #1 Consent Obtained: verbal consent Indication: laceration Site: foot (Dorsum of left foot) Size (cm): 1 Description: linear Depth: simple, single layer Anesthetic Used: lidocaine 1% Anesthesia Technique: local infiltration Amount (mls): 3 Pre-repair: irrigated extensively Type of Sutures: nylon Size of Sutures: 5-0 Number of Sutures: 4 Technique: simple, interrupted Patient Tolerated Procedure: well Medical Decision Making - Medical Decision Making Patient is a 60-year-old female here with a 1 cm laceration to the dorsum of her left foot after dropping a coffee cup on it today. Her tetanus is up to date. Patient's wound was cleaned, closed with 4, 5-0 sutures. Tolerated procedure ve ry well. She is stable for discharge. Disposition Clinical Impression: Laceration of left foot Disposition: HOME SELF-CARE Condition: Stable Instructions (If sedation given, give patient instructions): Care For Your Stitches (ED) Additional Instructions: Please return to the Emergency Department if symptoms worsen or any other concerns. Stitches need to be removed in 7-10 days as discussed. Keep covered while wearing shoes. Is patient prescribed a controlled substance at d/c from ED?: No Referrals: Omar Durbin MD [Primary Care Provider] - 1-2 days Time of Disposition: 08:44
== END 2021-02-25 08:48 | disposition home or self-care (01) ==
LOC: EC 07:35
DX: S91.312A Laceration without foreign body, left foot, initial encounter (principal); J45.909 Unspecified asthma, uncomplicated; M81.0 Age-related osteoporosis without current pathological fracture; Z87.19 Personal history of other diseases of the digestive system; Z87.891 Personal history of nicotine dependence; X58.XXXA Exposure to other specified factors, initial encounter
CPT/HCPCS: 96372; 12001; 99282; J2001

== ENCOUNTER → 2021-12-11 | Outpatient (CLI) | payer BC ==
--- NOTE | 2021-12-13 11:54 | MM ---
Reason for exam: screening (asymptomatic). Last mammogram was performed 19 years and 6 months ago. History: Patient is postmenopausal. Physical Findings: A clinical breast exam by your physician is recommended on an annual basis and results should be correlated with mammographic findings. MG 3D Screening Mammo W/Cad Bilateral CC and MLO view(s) were taken. XCCL view(s) were taken of the right breast. Prior study comparison: May 30, 2020, mammogram, performed at [facility]. February 02, 2019, mammogram, performed at [facility]. January 27, 2018, mammogram, performed at [facility]. February 13, 2017, mammogram, performed at [facility]. The breast tissue is heterogeneously dense. This may lower the sensitivity of mammography. There is no discrete abnormality. ASSESSMENT: Benign, BI-RAD 2 RECOMMENDATION: Routine screening mammogram of both breasts in 1 year.
== END | disposition home or self-care (01) ==
LOC: RADMAMWWP 14:18
PROVIDERS: ATTEND Obstetrics & Gynecology
DX: Z12.31 Encounter for screening mammogram for malignant neoplasm of breast (principal); Z78.0 Asymptomatic menopausal state
CPT/HCPCS: 77063; 77067

== ENCOUNTER 2022-02-28 16:08 | Observation (INO) | payer BC ==
[2022-02-28 17:21] LABS: Basophils # (A) 0.1 k/uL (0-0.2); Basophils % (A) 1 %; Eosinophils # (A) 0.7 k/uL (0-0.7); Eosinophils % (A) 7 %; HCT 41.7 % (34.0-46.0); Lymphocytes # (A) 1.5 k/uL (1.0-4.8); Lymphocytes % (A) 16 %; MCH 28.5 pg (25.0-35.0); MCHC 31.1 g/dL (31.0-37.0); MCV 91.7 fL (80.0-100.0); Mean Platelet Volume 7.8; Monocytes # (A) 0.4 k/uL (0-1.0); Monocytes % (A) 5 %; Neutrophils # (A) 6.4 k/uL (1.3-7.7); Neutrophils % (A) 71 %; Platelet Count 296 k/uL (150-450); RBC 4.55 m/uL (3.80-5.40); RDW 13.8 % (11.5-15.5); WBC 9.1 k/uL (3.8-10.6)
[2022-02-28 17:31] LABS: Partial Thromboplastin Time 23.9 sec (22.0-30.0); Prothrombin Time 10.6 sec (9.0-12.0)
[2022-02-28 17:35] LABS: ALT 16 U/L (4-34); AST 22 U/L (14-36); African American GFR (CKD) >90 (>60 ml/min/1.73 sqM); Albumin 4.3 g/dL (3.5-5.0); Alkaline Phosphatase 70 U/L (38-126); Anion Gap 6 mmol/L; Blood Urea Nitrogen 12 mg/dL (7-17); Calcium 9.6 mg/dL (8.4-10.2); Carbon Dioxide 26 mmol/L (22-30); Chloride 106 mmol/L (98-107); Glucose 111 mg/dL (74-99); Non-African American GFR(CKD) >90 (>60 ml/min/1.73 sqM); Potassium 4.2 mmol/L (3.5-5.1); Sodium 138 mmol/L (137-145); Total Bilirubin 0.2 mg/dL (0.2-1.3); Total Protein 6.8 g/dL (6.3-8.2)
--- NOTE | 2022-02-28 18:17 | XR ---
EXAMINATION TYPE: XR chest 2V DATE OF EXAM: 02/28/2022 COMPARISON: 10/23/2020 HISTORY: Altered mental status TECHNIQUE: 2 view FINDINGS: Heart and mediastinum are normal. Lungs are clear. Diaphragm is normal. Bony thorax is inta ct. IMPRESSION: Normal chest. No change.
[2022-02-28] MEDS ORDERED: methylPREDNISolone SOD SUCCI 125 MG/2 ML VIAL IV STA (18:18)
[2022-02-28] MEDS ORDERED: FAMOTIDINE 20 MG/2 ML VIAL IV STA (18:18)
[2022-02-28] MEDS ORDERED: diphenhydrAMINE 50 MG/ML 1 ML VIAL IVP STA (18:18)
--- NOTE | 2022-02-28 19:05 | ED ---
General Adult HPI - General Chief complaint: Neuro Symptoms/Deficit Stated complaint: left side pain, heart concerns Time Seen by Provider: 02/28/22 16:15 Source: patient Mode of arrival: ambulatory Limitations: no limitations - History of Present Illness Initial comments: 61-year-old female presents emergency room with strokelike symptoms. States that 45 minutes prior to hospital arrival she had sudden onset of numbness and tingling to the left side of her body. Symptoms involves the patient's face arm and lower extremity. Patient recently had hospitalization at [facility] and was diagnosed with an NSTEMI on Thursday. She did go for cardiac catheterization during her hospitalization. Denies any coronary disease. Denies any visual changes. No speech deficit. No confusion per family. No other alleviating, Perceptin or modifying factors - Related Data Home Medications Medication Instructions Recorded Confirmed Denosumab [Prolia] 1 dose SQ Q180D 08/09/20 02/28/22 EPINEPHrine [Epipen 2-Subhash] 0.3 mg IM ONCE PRN 08/09/20 02/28/22 Mometasone/Formoterol [Dulera 200 2 puff INHALATION RT-BID 08/09/20 02/28/22 Mcg-5 Mcg Inhaler] Pentosan Polysulfate Sodium 100 mg PO DAILY 08/09/20 02/28/22 [Elmiron] Pentosan Polysulfate Sodium 200 mg PO HS 08/09/20 02/28/22 [Elmiron] Albuterol Nebulized [Ventolin 2.5 mg INHALATION RT-QID PRN 02/28/22 02/28/22 Nebulized] Albuterol Sulfate [Ventolin HFA] 1 - 2 puff INHALATION RT-Q6H PRN 02/28/22 02/28/22 Ascorbic Acid/Collagen Hydr 1 cap PO DAILY 02/28/22 02/28/22 [Collagen Plus Vit C Capsule] Sertraline [Zoloft] 25 mg PO DAILY 02/28/22 02/28/22 Previous Rx's Medication Instructions Recorded Aspirin 81 mg PO DAILY tab 03/01/22 Atorvastatin [Lipitor] 40 mg PO DAILY #30 tab 03/01/22 Allergies Allergy/AdvReac Type Severity Reaction Status Date / Time basil Allergy Allergy Verified 02/28/22 18:26 Testing cabbage Allergy Allergy Verified 02/28/22 18:26 Testing Cauliflower Allergy Allergy Verified 02/28/22 18:26 Testing clindamycin Allergy Anaphylaxis Verified 02/28/22 18:26 coconut Allergy Allergy Verified 02/28/22 18:26 Testing garlic Allergy Allergy Verified 02/28/22 18:26 Testing mold Allergy Cough Verified 02/28/22 18:26 Penicillins Allergy Anaphylaxis Verified 02/28/22 18:26 pollen extracts Allergy Cough Verified 02/28/22 18:26 ragweed pollen Allergy Cough Verified 02/28/22 18:26 shellfish derived [Crab] Allergy Allergy Verified 02/28/22 18:26 Testing starch Allergy Allergy Verified 02/28/22 18:26 Testing Sulfa (Sulfonamide Allergy Anaphylaxis Verified 02/28/22 18:26 Antibiotics) sulfamethoxazole Allergy Anaphylaxis Verified 02/28/22 18:26 [From Bactrim] trimethoprim [From Bactrim] Allergy Anaphylaxis Verified 02/28/22 18:26 walnut Allergy Allergy Verified 02/28/22 18:26 Testing yeast, dried Allergy Allergy Verified 02/28/22 18:26 Testing bay leaf Allergy Allergy Uncoded 02/28/22 16:17 Testing travon Allergy Allergy Uncoded 02/28/22 16:17 Testing caulk Allergy Allergy Uncoded 02/28/22 16:17 Testing pullularia Allergy Allergy Uncoded 02/28/22 16:17 Testing rhizopus Allergy Allergy Uncoded 02/28/22 16:17 Testing czech cheese Allergy Allergy Uncoded 02/28/22 16:17 Testing white potato Allergy Allergy Uncoded 02/28/22 16:17 Testing Review of Systems ROS Statement: Those systems with pertinent positive or pertinent negative responses have been documented in the HPI. ROS Other: All systems not noted in ROS Statement are negative. Past Medical History Past Medical History: Asthma, GI Bleed, Myocardial Infarction ([place]) Additional Past Medical History / Comment(s): Hiatal hernia, chairez's esophagus, bleeding ulcer as a teen, lower GI bleed, interstitial cystitis, osteoporosis. History of Any Multi-Drug Resistant Organisms: None Reported Additional Past Surgical History / Comment(s): 09/12/20 EGD and colonoscopy, previous colonoscopy, sinus surgery. Past Anesthesia/Blood Transfusion Reactions: No Reported Reaction Past Psychological History: No Psychological Hx Reported Smoking Status: Former smoker Past Alcohol Use History: Rare Past Drug Use History: None Reported - Past Family History Mother Family Medical History: CVA/TIA, Hyperlipidemia Father Family Medical History: Dementia Additional Family Medical History / Comment(s): Father is . General Exam Limitations: no limitations General appearance: alert, in no apparent distress Head exam: Present: atraumatic, normocephalic, normal inspection Eye exam: Present: normal appearance, PERRL, EOMI. Absent: scleral icterus, conjunctival injection, periorbital swelling ENT exam: Present: normal exam, mucous membranes moist Neck exam: Present: normal inspection. Absent: tenderness, meningismus, lymphadenopathy Respiratory exam: Present: normal lung sounds bilaterally. Absent: respiratory distress, wheezes, rales, rhonchi, stridor Cardiovascular Exam: Present: regular rate, normal rhythm, normal heart sounds. Absent: systolic murmur, diastolic murmur, rubs, gallop, clicks GI/Abdominal exam: Present: soft, normal bowel sounds. Absent: distended, tenderness, guarding, rebound, rigid Extremities exam: Present: normal inspection, full ROM, normal capillary refill. Absent: tenderness, pedal edema, joint swelling, calf tenderness Back exam: Present: normal inspection Neurological exam: Present: alert, oriented X3, CN II-XII intact Psychiatric exam: Present: normal affect, normal mood Skin exam: Present: warm, dry, intact, normal color. Absent: rash Course Vital Signs 02/28/22 02/28/22 02/28/22 16:13 17:23 20:46 Temperature 98.1 F Pulse Rate 72 65 74 Respiratory 20 18 18 Rate Blood Pressure 118/75 109/75 113/71 O2 Sat by Pulse 99 97 98 Oximetry EKG Findings - EKG Comments: EKG Findings:: EKG demonstrates sinus rhythm with a rate of 65. WI interval 136. QRS 117. QTC of 403. Left anterior fascicular block. No acute ST seg ment elevations or depressions Medical Decision Making - Medical Decision Making Upon arrival patient was placed into room 28. Thorough history and physical exam was performed. Patient has subjective paresthesias however has an NIH of 0. Laboratory studies are conducted. She is sent for a CT of her head and CT angiography is performed. Laboratory studies are within normal limits. CT and CT angiography is negative. Patient is reevaluated and reports that her symptoms have completely resolved at this time. Patient was given an aspirin. Recommended admission for possible TIA. Spoke with Dr. Ochoa who agreed to admit the patient. Patient taken to the floor in stable condition. - Lab Data Result diagrams: 02/28/22 17:08 02/28/22 17:08 Lab Results 02/28/22 02/28/22 02/28/22 Range/Units 17:08 17:08 17:08 WBC 9.1 (3.8-10.6) k/uL RBC 4.55 (3.80-5.40) m/uL Hgb 13.0 (11.4-16.0) gm/dL Hct 41.7 (34.0-46.0) % MCV 91.7 (80.0-100.0) fL MCH 28.5 (25.0-35.0) pg MCHC 31.1 (31.0-37.0) g/dL RDW 13.8 (11.5-15.5) % Plt Count 296 (150-450) k/uL MPV 7.8 Neutrophils % 71 % Lymphocytes % 16 % Monocytes % 5 % Eosinophils % 7 % Basophils % 1 % Neutrophils # 6.4 (1.3-7.7) k/uL Lymphocytes # 1.5 (1.0-4.8) k/uL Monocytes # 0.4 (0-1.0) k/uL Eosinophils # 0.7 (0-0.7) k/uL Basophils # 0.1 (0-0.2) k/uL PT 10.6 (9.0-12.0) sec INR 1.0 (<1.2) APTT 23.9 (22.0-30.0) sec Sodium 138 (137-145) mmol/L Potassium 4.2 (3.5-5.1) mmol/L Chloride 106 (98-107) mmol/L Carbon Dioxide 26 (22-30) mmol/L Anion Gap 6 mmol/L BUN 12 (7-17) mg/dL Creatinine 0.63 (0.52-1.04) mg/dL Est GFR (CKD-EPI)AfAm >90 (>60 ml/min/1.73 sqM) Est GFR (CKD-EPI)NonAf >90 (>60 ml/min/1.73 sqM) Glucose 111 H (74-99) mg/dL Estimated Ave Glu mg/dL Hemoglobin A1c (0.0-6.0) % Calcium 9.6 (8.4-10.2) mg/dL Total Bilirubin 0.2 (0.2-1.3) mg/dL AST 22 (14-36) U/L ALT 16 (4-34) U/L Alkaline Phosphatase 70 (38-126) U/L Troponin I (0.000-0.034) ng/mL Total Protein 6.8 (6.3-8.2) g/dL Albumin 4.3 (3.5-5.0) g/dL Triglycerides (0.00-149.00) mg/dL Cholesterol (0.00-200.00) mg/dL LDL Cholesterol, Calc (0.0-131.0) mg/dL VLDL Cholesterol, Calc (5.00-40.00) mg/dL HDL Cholesterol (40.00-60.00) mg/dL Cholesterol/HDL Ratio Ratio 02/28/22 02/28/22 02/28/22 Range/Units 17:08 17:08 17:08 WBC (3.8-10.6) k/uL RBC (3.80-5.40) m/uL Hgb (11.4-16.0) gm/dL Hct (34.0-46.0) % MCV (80.0-100.0) fL MCH (25.0-35.0) pg MCHC (31.0-37.0) g/dL RDW (11.5-15.5) % Plt Count (150-450) k/uL MPV Neutrophils % % Lymphocytes % % Monocytes % % Eosinophils % % Basophils % % Neutrophils # (1.3-7.7) k/uL Lymphocytes # (1.0-4.8) k/uL Monocytes # (0-1.0) k/uL Eosinophils # (0-0.7) k/uL Basophils # (0-0.2) k/uL PT (9.0-12.0) sec INR (<1.2) APTT (22.0-30.0) sec Sodium (137-145) mmol/L Potassium (3.5-5.1) mmol/L Chloride (98-107) mmol/L Carbon Dioxide (22-30) mmol/L Anion Gap mmol/L BUN (7-17) mg/dL Creatinine (0.52-1.04) mg/dL Est GFR (CKD-EPI)AfAm (>60 ml/min/1.73 sqM) Est GFR (CKD-EPI)NonAf (>60 ml/min/1.73 sqM) Glucose (74-99) mg/dL Estimated Ave Glu mg/dL 114 Hemoglobin A1c 5.6 (0.0-6.0) % Calcium (8.4-10.2) mg/dL Total Bilirubin (0.2-1.3) mg/dL AST (14-36) U/L ALT (4-34) U/L Alkaline Phosphatase (38-126) U/L Troponin I <0.012 (0.000-0.034) ng/mL Total Protein (6.3-8.2) g/dL Albumin (3.5-5.0) g/dL Triglycerides 123.00 (0.00-149.00) mg/dL Cholesterol 176.00 (0.00-200.00) mg/dL LDL Cholesterol, Calc 98.8 (0.0-131.0) mg/dL VLDL Cholesterol, Calc 24.60 (5.00-40.00) mg/dL HDL Cholesterol 52.60 (40.00-60.00) mg/dL Cholesterol/HDL Ratio 3.35 Ratio Disposition Clinical Impression: TIA (transient ischemic attack) Disposition: ADMITTED IP TO THIS HOSP Condition: Good Is patient prescribed a controlled substance at d/c from ED?: No Time of Disposition: 20:12 Decision to Admit Reason: Admit from EC Decision Date: 02/28/22 Decision Time: 20:12
--- NOTE | 2022-02-28 19:34 | CT ---
EXAMINATION TYPE: CT brain wo con DATE OF EXAM: 02/28/2022 COMPARISON: None HISTORY: Neuro deficits, pt had mild DE on Thursday, c/o LT side chest pain/tingling. CT DLP: 1162.6 mGycm Automated exposure control for dose reduction was used. Images of the brain obtained with no contrast. Ventricles have normal size. There is no mass effect or midline shift. No sign of intracranial hemorr maddi. The calvarium is intact. No evidence of cerebral edema. There is normal aeration of the mastoid sinuses. IMPRESSION: Negative unenhanced head CT scan.
--- NOTE | 2022-02-28 19:47 | CT ---
EXAMINATION TYPE: CT angio head neck DATE OF EXAM: 02/28/2022 COMPARISON: None HISTORY: Neuro deficits, pt had mild [place] on Thursday, c/o LT side chest pain/tingling. CT DLP: 386.3 mGycm Automated exposure control for dose reduction was used. CONTRAST: Performed with IV Contrast, patient injected with 65 mL of Isovue 370. Images obtained from the aortic arch to the vertex of the brain with the IV contrast. There are 3-D p ost processed images. There is normal branching pattern of the great vessels on the aortic arch. There is bilateral arteria l flow in the subclavian arteries. There is arterial flow in the common internal and external carotid arteries bilaterally. There is wid e patency of the carotid artery bifurcations. There is bilateral arterial flow in the vertebral arter ies. There is arterial flow in the vertebral basilar artery system. No evidence of carotid or vertebr al artery aneurysm or dissection. There is arterial flow in the anterior middle and posterior cerebral arteries bilaterally. There is n o mass effect. No evidence of intracranial aneurysm or neovascularity. No evidence of hemodynamic sandra nosis. There is normal enhancement of the venous sinuses. IMPRESSION: Negative CT angiogram of the brain. Negative CT angiogram of the neck. Mild frontal and left-sided sphenoid sinusitis is noted.
[2022-02-28] MEDS ORDERED: ASPIRIN 325 MG TAB PO STA (20:19)
--- NOTE | 2022-03-01 00:03 | P.HPIM ---
History of Present Illness H&P Date: 02/28/22 Chief Complaint: Left sided numbness 61-year-old female with history of asthma Patient comes in due to sudden onset left-sided numbness, she had the stroke workup in the ED and was negative she is admitted for monitoring Patient reports that about less than an hour prior to coming to the ED she suddenly felt some strange sensation in her foot and then started to feel bur juani sensation extending all the way from the left foot all the way up to her neck involving her left side of the body left lower extremity left upper extremity she denies any numbness or tingling or weakness she reports that it was more of a burning sensation as if she is having ALLERGIC reaction she grew concerned and decided to come to the hospital for evaluation. She was recently seen in the ED at at [facility] where she had NSTEMI , and had left heart cath performed which she reports showed clean coronary arteries. She recalls viral infection with influenza A about a month prior to that and a mild case of Covid back in October. However since that episode of Covid she's been co ughing on daily basis no hemoptysis no significant weight loss denies any pleuritic chest pain however the episodes of chest pain that took her to the hospital she felt that she's having sharp pain across her chest otherwise she denies any prior history of cardiac event or stroke, denies any history of diabetes denies any drug abuse tobacco smoking or heavy alcohol use. Currently she reports complete resolution of her symptoms CT of the brain and CT angiogram the head and neck both showed no acute pathology. Her blood work overall unremarkable her vital signs are stable and within normal limits. Review of Systems Pertinent positives as noted in HPI. All other systems were reviewed and are negative Past Medical History Past Medical History: Asthma, GI Bleed, Myocardial Infarction ([place]) Additional Past Medical History / Comment(s): Hiatal hernia, chairez's esophagus, bleeding ulcer as a teen, lower GI bleed, interstitial cystitis, osteoporosis. History of Any Multi-Drug Resistant Organisms: None Reported Additional Past Surgical History / Comment(s): 09/12/20 EGD and colonoscopy, previous colonoscopy, sinus surgery. Past Anesthesia/Blood Transfusion Reactions: No Reported Reaction Past Psychological History: No Psychological Hx Reported Smoking Status: Former smoker Past Alcohol Use History: Rare Past Drug Use History: None Reported - Past Family History Mother Family Medical History: CVA/TIA, Hyperlipidemia Father Family Medical History: Dementia Additional Family Medical History / Comment(s): Father is . Medications and Allergies Home Medications Medication Instructions Recorded Confirmed Type Denosumab [Prolia] 1 dose SQ Q180D 08/09/20 02/28/22 History EPINEPHrine [Epipen 2-Subhash] 0.3 mg IM ONCE PRN 08/09/20 02/28/22 History Mometasone/Formoterol [Dulera 200 2 puff INHALATION RT-BID 08/09/20 02/28/22 History Mcg-5 Mcg Inhaler] Pentosan Polysulfate Sodium 100 mg PO DAILY 08/09/20 02/28/22 History [Elmiron] Pentosan Polysulfate Sodium 200 mg PO HS 08/09/20 02/28/22 History [Elmiron] Albuterol Nebulized [Ventolin 2.5 mg INHALATION RT-QID PRN 02/28/22 02/28/22 History Nebulized] Albuterol Sulfate [Ventolin HFA] 1 - 2 puff INHALATION RT-Q6H PRN 02/28/22 02/28/22 History Ascorbic Acid/Collagen Hydr 1 cap PO DAILY 02/28/22 02/28/22 History [Collagen Plus Vit C Capsule] Sertraline [Zoloft] 25 mg PO DAILY 02/28/22 02/28/22 History Allergies Allergy/AdvReac Type Severity Reaction Status Date / Time basil Allergy Allergy Verified 02/28/22 18:26 Testing cabbage Allergy Allergy Verified 02/28/22 18:26 Testing Cauliflower Allergy Allergy Verified 02/28/22 18:26 Testing clindamycin Allergy Anaphylaxis Verified 02/28/22 18:26 coconut Allergy Allergy Verified 02/28/22 18:26 Testing garlic Allergy Allergy Verified 02/28/22 18:26 Testing mold Allergy Cough Verified 02/28/22 18:26 Penicillins Allergy Anaphylaxis Verified 02/28/22 18:26 pollen extracts Allergy Cough Verified 02/28/22 18:26 ragweed pollen Allergy Cough Verified 02/28/22 18:26 shellfish derived [Crab] Allergy Allergy Verified 02/28/22 18:26 Testing starch Allergy Allergy Verified 02/28/22 18:26 Testing Sulfa (Sulfonamide Allergy Anaphylaxis Verified 02/28/22 18:26 Antibiotics) sulfamethoxazole Allergy Anaphylaxis Verified 02/28/22 18:26 [From Bactrim] trimethoprim [From Bactrim] Allergy Anaphylaxis Verified 02/28/22 18:26 walnut Allergy Allergy Verified 02/28/22 18:26 Testing yeast, dried Allergy Allergy Verified 02/28/22 18:26 Testing bay leaf Allergy Allergy Uncoded 02/28/22 16:17 Testing travon Allergy Allergy Uncoded 02/28/22 16:17 Testing caulk Allergy Allergy Uncoded 02/28/22 16:17 Testing pullularia Allergy Allergy Uncoded 02/28/22 16:17 Testing rhizopus Allergy Allergy Uncoded 02/28/22 16:17 Testing afghan cheese Allergy Allergy Uncoded 02/28/22 16:17 Testing white potato Allergy Allergy Uncoded 02/28/22 16:17 Testing Physical Exam Vitals: Vital Signs Temp Pulse Resp BP Pulse Ox 02/28/22 17:23 65 18 109/75 97 02/28/22 16:13 98.1 F 72 20 118/75 99 Intake and Output 02/28/22 02/28/22 02/28/22 06:59 14:59 22:59 Other: Weight 65.771 kg Constitutional: No acute distress, conversant, pleasant Eyes: Anicteric sclerae, moist conjunctiva, Pupils equal round reactive to light ENMT: NC/AT Oropharynx clear, no erythema, or exudates Neck: Supple, FROM, no masses, or JVD No carotid bruits No thyromegaly Lungs: Clear to auscultation Clear to percussion Normal respiratory effort, no accessory muscle use Cardiovascular: Heart regular in rate and rhythm, No murmurs, gallops, or rubs No peripheral edema Abdominal: Soft Nontender, no guarding, rebound or rigidity Abdomen moving with respiration Normoactive bowel sounds No hepatomegaly, No splenomegaly No palpable mass No abdominal wall hernia noted Skin: Normal temperature, tone, texture, turgor No induration No subcutaneous nodules No rash, lesions No ulcers Extremities: No digital cyanosis No clubbing Pedal pulses intact and symmetrical Radial pulses intact and symmetrical No calf tenderness Psychiatric: Alert and oriented to person, place and time Appropriate affect fair judgement Neuro Muscles Strength 5/5 in all 4 extremities Sensation to light touch grossly present throughout Cranial nerves II-XII grossly intact No focal sensory deficits Lymphatics: no palpable cervical or supraclavicular , or inguinal lymph nodes Results CBC & Chem 7: 02/28/22 17:08 02/28/22 17:08 Labs: Abnormal Lab Results - Last 24 Hours (Table) 02/28/22 Range/Units 17:08 Glucose 111 H (74-99) mg/dL Assessment and Plan Assessment: TIA, resolved CT of the brain and CT angiogram of the neck both showed no acute pathology Continue with stroke workup Continue with aspirin Check lipid profile, check A1c Check echocardiogram PT/OT eval Neurology consult Neurochecks Intermittent asthma DuoNeb's when necessary DVT prophylaxis mechanical Full code
[2022-03-01] MEDS ORDERED: IPRATROPIUM-ALBUTEROL 3 ML NEB INHALATION PRN (00:04)
[2022-03-01] MEDS ORDERED: SYMBICORT 160-4.5 MCG INHALER INHALATION SCH (08:00)
[2022-03-01 08:27] VITALS: BP 110/70; PULSE 72; RESP 16; TEMP 98
[2022-03-01] MEDS ORDERED: ATORVASTATIN 40 MG TAB PO SCH (09:00)
[2022-03-01] MEDS ORDERED: ASPIRIN 325 MG TAB PO SCH (09:00)
[2022-03-01] MEDS ORDERED: NON FORMULARY DRUG (Pentosan Polysulfate Sodium [Elmiron] 100 MG Capsule) PO SCH ×2 (09:00→21:00)
[2022-03-01] MEDS ORDERED: SERTRALINE 25 MG TAB PO SCH (09:00)
--- NOTE | 2022-03-01 10:21 | P.CNNES ---
History of Present Illness Consult date: 03/01/22 Requesting physician: Kaylee Castillo Reason for Consult: possible tia History of Present Illness: This is a 61-year-old woman with recent NSTEMI who presented to to the emergency department for left sided numbness and tingling. Patient presents to our facility 45 minutes prior to her onset of symptoms of numbness tingling over left side of the body and involving the face. She initially noticed some swelling over the left calf region but noticed numbness tingling over the the left calf that ascended up involving the left upper extremity as well as the left ear. She denies any weakness. She denies any difficulty getting her words out. Denies any jerk in of any extremities. Any seizure-like activity. Her symptoms resolved shortly after. She stated that she had similar episodes where she had left or extremity tightness. She denies of any history of stroke or seizures in the past. She stated that she had multiple sclerosis workup many years back and was told was negative. Patient denies of any neck pain. She does have some lower back pain. Currently she feels back to baseline. Patient stated that she had recent non-STEMI this past Thursday and was at [facility] and she had cardiac catheterization during her hospitalization. Patient's was not discharged on antiplatelet and she is not on any antiplatelets at home. She denies of any tobacco use or any illicit drug use. She rarely drinks alcohol. Some other workup in our facility consisted of: On presentation her initial blood pressure was 118/75 but at midnight recorded blood pressure was 88/54 and currently to 110/70 CBC with differential is unremarkable Chemistry panel seems unremarkable CT of the brain is reported as negative on has had computed tomography scan CT angiography of the head and neck is reported as negative. Mild frontal and left-sided the sphenoid sinusitis is noted. In the ED patient NIH was a 0. And her symptoms has resolved. No IV TPA since her symptoms is resolved and the risks outweigh the benefit. Review of Systems Review of system: The 12 point system was reviewed and apparent positive and negative per HPI. Past Medical History Past Medical History: Asthma, GI Bleed, Myocardial Infarction (SD) Additional Past Medical History / Comment(s): Hiatal hernia, chairez's esophagus, bleeding ulcer as a teen, lower GI bleed, interstitial cystitis, osteoporosis. Last Myocardial Infarction Date:: 2021 History of Any Multi-Drug Resistant Organisms: None Reported Additional Past Surgical History / Comment(s): 09/12/20 EGD and colonoscopy, previous colonoscopy, sinus surgery. Past Anesthesia/Blood Transfusion Reactions: No Reported Reaction Past Psychological History: No Psychological Hx Reported Smoking Status: Former smoker Past Alcohol Use History: Rare Past Drug Use History: None Reported - Past Family History Mother Family Medical History: CVA/TIA, Hyperlipidemia Father Family Medical History: Dementia Additional Family Medical History / Comment(s): Father is . Medications and Allergies Home Medications Medication Instructions Recorded Confirmed Type Denosumab [Prolia] 1 dose SQ Q180D 08/09/20 02/28/22 History EPINEPHrine [Epipen 2-Subhash] 0.3 mg IM ONCE PRN 08/09/20 02/28/22 History Mometasone/Formoterol [Dulera 200 2 puff INHALATION RT-BID 08/09/20 02/28/22 History Mcg-5 Mcg Inhaler] Pentosan Polysulfate Sodium 100 mg PO DAILY 08/09/20 02/28/22 History [Elmiron] Pentosan Polysulfate Sodium 200 mg PO HS 08/09/20 02/28/22 History [Elmiron] Albuterol Nebulized [Ventolin 2.5 mg INHALATION RT-QID PRN 02/28/22 02/28/22 History Nebulized] Albuterol Sulfate [Ventolin HFA] 1 - 2 puff INHALATION RT-Q6H PRN 02/28/22 02/28/22 History Ascorbic Acid/Collagen Hydr 1 cap PO DAILY 02/28/22 02/28/22 History [Collagen Plus Vit C Capsule] Sertraline [Zoloft] 25 mg PO DAILY 02/28/22 02/28/22 History Aspirin 81 mg PO DAILY tab 03/01/22 Rx Atorvastatin [Lipitor] 40 mg PO DAILY #30 tab 03/01/22 Rx Allergies Allergy/AdvReac Type Severity Reaction Status Date / Time basil Allergy Allergy Verified 02/28/22 18:26 Testing cabbage Allergy Allergy Verified 02/28/22 18:26 Testing Cauliflower Allergy Allergy Verified 02/28/22 18:26 Testing clindamycin Allergy Anaphylaxis Verified 02/28/22 18:26 coconut Allergy Allergy Verified 02/28/22 18:26 Testing garlic Allergy Allergy Verified 02/28/22 18:26 Testing mold Allergy Cough Verified 02/28/22 18:26 Penicillins Allergy Anaphylaxis Verified 02/28/22 18:26 pollen extracts Allergy Cough Verified 02/28/22 18:26 ragweed pollen Allergy Cough Verified 02/28/22 18:26 shellfish derived [Crab] Allergy Allergy Verified 02/28/22 18:26 Testing starch Allergy Allergy Verified 02/28/22 18:26 Testing Sulfa (Sulfonamide Allergy Anaphylaxis Verified 02/28/22 18:26 Antibiotics) sulfamethoxazole Allergy Anaphylaxis Verified 02/28/22 18:26 [From Bactrim] trimethoprim [From Bactrim] Allergy Anaphylaxis Verified 02/28/22 18:26 walnut Allergy Allergy Verified 02/28/22 18:26 Testing yeast, dried Allergy Allergy Verified 02/28/22 18:26 Testing bay leaf Allergy Allergy Uncoded 02/28/22 16:17 Testing travon Allergy Allergy Uncoded 02/28/22 16:17 Testing caulk Allergy Allergy Uncoded 02/28/22 16:17 Testing pullularia Allergy Allergy Uncoded 02/28/22 16:17 Testing rhizopus Allergy Allergy Uncoded 02/28/22 16:17 Testing citizen [place] cheese Allergy Allergy Uncoded 02/28/22 16:17 Testing white potato Allergy Allergy Uncoded 02/28/22 16:17 Testing Physical Examination - Vital Signs Vital Signs: Vital Signs Temp Pulse Pulse Resp BP BP Pulse Ox 03/01/22 08:00 98.0 F 72 16 110/70 97 03/01/22 03:56 97.8 F 57 L 12 99/61 97 03/01/22 00:00 97.8 F 63 12 88/54 98 02/28/22 21:57 98.3 F 67 12 100/68 96 02/28/22 20:46 74 18 113/71 98 02/28/22 17:23 65 18 109/75 97 02/28/22 16:13 98.1 F 72 20 118/75 99 Intake and Output 02/28/22 03/01/22 03/01/22 22:59 06:59 14:59 Other: Voiding Method Toilet # Voids 1 2 Weight 65.771 kg GENERAL: The patient is lying in bed and is not in acute distress. CHEST: The heart rate is regular rate rhythm. No murmurs to auscultation. LUNG: Clear to auscultation bilaterally no wheezing noted throughout. Not labored breathing. ABDOMEN/GI: Bowel sounds present in all 4 quadrants. No tenderness to palpation throughout. NEUROLOGICAL: Higher mental function: The patient is awake, alert, oriented to self, place and time. Patient is following commands. No aphasia and no neglect. Cranial nerves: The pupils are round, equal and reactive to light and accommodation. Visual cunha are full to confrontation throughout. Extraocular movement is intact no nystagmus is noted. Facial sensation is normal to touch throughout. The facial strength is normal throughout. Hearing is normal bilaterally to hand rub. Tongue is midline and moved [id number] without any difficulty. No dysarthria is noted. Shoulder shrug is normal bilaterally. Motor: The strength is 5 over 5 throughout. Normal tone and bulk. Cerebellum: Normal finger to nose heel to ramos bilaterally. Sensation: Sensation is normal to touch throughout. Reflexes (right/left): 3+ throughout (especially left). Plantars are mute bilaterally. Results - Laboratory Findings CBC and BMP: 02/28/22 17:08 02/28/22 17:08 Abnormal Lab Findings: Abnormal Labs 02/28/22 17:08 Glucose 111 H Assessment and Plan Assessment: Acute transient left sided paresthesia (started in left leg that ascended up to upper extremity and left ear). Unsure exact cause. On examination has hyperreflexia of all extremities (predominately left). Recent reported NSTEMI (was at outside hospital and had cardiac cath) Plan: In the ED the patient was given aspirin 325 once then was started on aspirin 325 daily as well as Lipitor 40 mg daily. Continues for secondary prophylaxis. I highly recommend MRI of the brain and cervical spine to rule out any myelopathy in the cervical region. Again she has hyperreflexia of all extremities. Patient is in agreement of getting the MRI as an outpatient but if has further symptoms consider as inpatient. Consider routine EEG if the patient continues to have similar symptoms throughout any seizures. 2-D echo, lipid panel, hemoglobin A1c is ordered and is pending Recommend vitamin B12 and folate level. PT, OT and SUGARCANE RESEARCH TECHNICIAN are consulted Continue neuro checks On cardiac monitoring We'll defer the rest of the medical management to the primary team Upon discharge recommend the patient follow up with a neurologist in outpatient within 1-2 weeks The plan was discussed with the patient's and her nurse Thank you for the consultation. Gary Gibbs M.D. Neuro-hospitalist Time with Patient: Greater than 30
--- NOTE | 2022-03-01 11:20 | P.DS ---
Providers Date of admission: 02/28/22 20:12 Expected date of discharge: 03/01/22 Attending physician: Norma Ochoa MD Consults: 02/28/22 20:19 Consult Physician Urgent Consulting Provider: Gary Gibbs Consult Reason/Comments: possible tia Do you want consulting provider notified?: Yes Primary care physician: [facility] Course: TIA Mild Intermittent Asthma 61-year-old female with history of asthma presented with sudden onset left-sided numbness. Patient was afebrile, 99/61, heart rate 57, 97% on room air. CBC, chemistries, liver function tests were all normal. Troponin was less than 0.012. Coags are normal. CT of the brain and CT angiogram the head and neck both showed no acute pathology. She was evaluated by neurology, who recommended outpatient MRI for hyperreflexia noted on exam. Patient was subsequently discharged with neurology and PCP follow-up. Gen: awake, alert HEENT: normocephalic, atraumatic, good hearing acuity, moist mucous membranes Resp: good air exchange, breathing comfortably with no accessory muscle use CVS: good distal perfusion x 4, GI: soft, NTTP, ND : no SPT, no CVAT, galloway catheter not present MSK: no pitting edema, no clubbing Neuro: non-focal, moving all extremities Psych: cooperative, euthymic mood Patient Condition at Discharge: Good Plan - Discharge Summary New Discharge Prescriptions: New Aspirin 81 mg PO DAILY tab Atorvastatin [Lipitor] 40 mg PO DAILY #30 tab Continue Pentosan Polysulfate Sodium [Elmiron] 200 mg PO HS EPINEPHrine [Epipen 2-Subhash] 0.3 mg IM ONCE PRN PRN Reason: Anaphylaxis Denosumab [Prolia] 1 dose SQ Q180D Pentosan Polysulfate Sodium [Elmiron] 100 mg PO DAILY Mometasone/Formoterol [Dulera 200 Mcg-5 Mcg Inhaler] 2 puff INHALATION RT-BID Ascorbic Acid/Collagen Hydr [Collagen Plus Vit C Capsule] 1 cap PO DAILY Sertraline [Zoloft] 25 mg PO DAILY Albuterol Sulfate [Ventolin HFA] 1 - 2 puff INHALATION RT-Q6H PRN PRN Reason: Shortness Of Breath Albuterol Nebulized [Ventolin Nebulized] 2.5 mg INHALATION RT-QID PRN PRN Reason: Shortness Of Breath Discharge Medication List Denosumab [Prolia] 1 dose SQ Q180D 08/09/20 [History] EPINEPHrine [Epipen 2-Subhash] 0.3 mg IM ONCE PRN 08/09/20 [History] Mometasone/Formoterol [Dulera 200 Mcg-5 Mcg Inhaler] 2 puff INHALATION RT-BID 08/09/20 [History] Pentosan Polysulfate Sodium [Elmiron] 100 mg PO DAILY 08/09/20 [History] Pentosan Polysulfate Sodium [Elmiron] 200 mg PO HS 08/09/20 [History] Albuterol Nebulized [Ventolin Nebulized] 2.5 mg INHALATION RT-QID PRN 02/28/22 [History] Albuterol Sulfate [Ventolin HFA] 1 - 2 puff INHALATION RT-Q6H PRN 02/28/22 [History] Ascorbic Acid/Collagen Hydr [Collagen Plus Vit C Capsule] 1 cap PO DAILY 02/28/22 [History] Sertraline [Zoloft] 25 mg PO DAILY 02/28/22 [History] Aspirin 81 mg PO DAILY tab 03/01/22 [Rx] Atorvastatin [Lipitor] 40 mg PO DAILY #30 tab 03/01/22 [Rx] Follow up Appointment(s)/Referral(s): Omar Durbin MD [Primary Care Provider] - 1-2 days Patient Instructions/Handouts: Transient Ischemic Attack (DC) Discharge Disposition: HOME SELF-CARE
[2022-03-01 11:59] LABS: Chol/HDL Ratio 3.35 Ratio; LDL Cholesterol,Calculated 98.8 mg/dL (0.0-131.0)
--- NOTE | 2022-03-01 13:30 | CA ---
Transthoracic Echo Report Name: Lydia Goodrich Age: 61 Gender: F : 1960 Exam Date: 03/01/2022 08:29 Exam Location: [facility] Ht (in): 67 Wt (lb): 145 Ordering Physician: Norma Ochoa MD Attending/Referring Phys: [id number], Gabriela Buckle Attaching Machine Operator Tess Pino RDCS Procedure CPT: Indications: tia Cardiac Hx: Technical Quality: Fair Contrast 1: Total Dose (mL): Contrast 2: Total Dose (mL): MEASUREMENTS (Male / Female) Normal Values 2D ECHO LV Diastolic Diameter PLAX 4.7 cm 4.2 - 5.9 / 3.9 - 5.3 cm LV Systolic Diameter PLAX 2.6 cm IVS Diastolic Thickness 1.0 cm 0.6 - 1.0 / 0.6 - 0.9 cm LVPW Diastolic Thickness 1.3 cm 0.6 - 1.0 / 0.6 - 0.9 cm LV Relative Wall Thickness 0.5 RV Internal Dim ED PLAX 3.4 cm LA Volume 27.7 cm??? 18 - 58 / 22 - 52 cm??? M-MODE Aortic Root Diameter MM 3.1 cm LA Systolic Diameter MM 3.1 cm LA Ao Ratio MM 1.0 AV Cusp Separation MM 2.0 cm DOPPLER AV Peak Velocity 144.3 cm/s AV Peak Gradient 8.3 mmHg LVOT Peak Velocity 91.0 cm/s LVOT Peak Gradient 3.3 mmHg MV Area PHT 5.0 cm??? Mitral E Point Velocity 68.0 cm/s Mitral A Point Velocity 67.5 cm/s Mitral E to A Ratio 1.0 MV Deceleration Time 152.5 ms MV E' Velocity 8.5 cm/s Mitral E to MV E' Ratio 8.0 TR Peak Velocity 179.3 cm/s TR Peak Gradient 12.9 mmHg Right Ventricular Systolic Press 17.9 mmHg FINDINGS Left Ventricle Mildly increased left ventricular wall thickness. Normal left ventricular systolic function with no obvious regional wall motion abnormalities. Normal left ventricular diastolic filling pattern. Left ventricular ejection fraction is estimated at 55-60 %. Right Ventricle Normal right ventricular size and function. Right ventricular systolic pressure within normal limits. Right Atrium Normal right atrial size. Left Atrium Normal left atrial size. No evidence for an atrial septal defect. Mitral Valve Structurally normal mitral valve. No mitral stenosis, regurgitation or prolapse. Aortic Valve No aortic valve stenosis or regurgitation. Tricuspid Valve Structurally normal tricuspid valve. Mild tricuspid stenosis. Pulmonic Valve Structurally normal pulmonic valve. Trace pulmonic regurgitation. Pericardium No pericardial effusion. Aorta Normal size aortic root and proximal ascending aorta. CONCLUSIONS Normal LV systolic function Consider transesophageal echo if clinically indicated Previewed by: Dr. Bandar Vera MD (Electronically Signed) Final Date: 01 March 2022 13:29
== END 2022-03-01 10:24 | disposition home or self-care (01) ==
LOC: EC 16:08 → 3SCARD 20:12
PROVIDERS: ADMIT Internal Medicine; ATTEND Internal Medicine
DX: G45.9 Transient cerebral ischemic attack, unspecified (principal); J45.20 Mild intermittent asthma, uncomplicated; I25.2 Old myocardial infarction; M81.0 Age-related osteoporosis without current pathological fracture; K22.70 Barrett's esophagus without dysplasia; K44.9 Diaphragmatic hernia without obstruction or gangrene; I44.4 Left anterior fascicular block; N30.11 Interstitial cystitis (chronic) with hematuria; M54.50 Low back pain, unspecified; J32.3 Chronic sphenoidal sinusitis; Z79.51 Long term (current) use of inhaled steroids; Z79.899 Other long term (current) drug therapy; Z79.82 Long term (current) use of aspirin; Z88.1 Allergy status to other antibiotic agents; Z88.0 Allergy status to penicillin; Z91.013 Allergy to seafood; Z88.2 Allergy status to sulfonamides; Z91.018 Allergy to other foods; Z87.891 Personal history of nicotine dependence; Z86.16 Personal history of COVID-19; Z81.8 Family history of other mental and behavioral disorders; Z83.438 Family history of other disorder of lipoprotein metabolism and other lipidemia; Z82.3 Family history of stroke
CPT/HCPCS: 96374; 96375; 99285; 36415; 93005; 93306; 97161; 80061; 80053; 84484; 85025; 85610; 85730; 83036; 71046; 70496; 70450; 70498; G0378 ×2; J1200; J2930; Q9967

== ENCOUNTER → 2022-11-24 | Outpatient (CLI) | payer BC ==
--- NOTE | 2022-11-24 18:11 | CA ---
Stress Echo Report Lydia Goodrich Age: 62 Gender: F : 1960 Exam Date: 11/24/2022 10:31 Exam Location: [facility] Ht (in): 66 Wt (lb): 140 Ordering Physician: Mark Cruz MD Referring Physician: Elizabeth Hill DO Fashion Journalist: Maureen Olson RDCS Technologist Procedure CPT: Indication: I25.119 ATHSCL HEART DISEASE OF [place] ART W U ICD-9 Codes: Rhythm: Patient History: Family history Cardiac Medications: Medications in past 24 hours: Contrast: Stress Results Protocol: Aaron Total dose(mL): Exercise Duration (min:sec): Max ST Depression (mm): Angina Score: Sanchez Score: METS: 12.1 Resting HR: 77 Resting BP: 85 / 55 Peak HR: 164 Peak BP: 182 / 53 Max Predicted HR: 160 103 % Max Predicted HR Target HR: 136 Double Product: [id number] Stress Summary: BP Response: Reason for Termination: Reached target heart Cardiac Symptoms: ECG Analysis Resting ECG: Baseline EKG shows sinus rhythm right bundle branch block with nonspecific ST-T wave changes Stress ECG: Patient exercised on Aaron protocol for 11 minutes achieving 12 mets 85% of predicted maximal heart rate without chest pain EKG changes were nondiagnostic secondary to EKG artifact Arrhythmia: Frequent PVCs Echo Analysis Resting Echo: Normal left ventricular size wall motion systolic function Peak Echo Analysis: Normal hyperdynamic response of all segments of myocardium noted MEASUREMENTS (Male/Female) Normal Values CONCLUSIONS Excellent exercise tolerance Inconclusive EKG part of the stress test due to EKG artifact and baseline EKG abnormalities Negative stress echo Dr. Bandar Vera MD (Electronically Signed) Final Date: 24 November 2022 18:10
== END | disposition home or self-care (01) ==
LOC: RADNMMAIN 09:51
PROVIDERS: ATTEND Internal Medicine Geriatric Medicine
DX: I25.119 Atherosclerotic heart disease of native coronary artery with unspecified angina pectoris (principal)
CPT/HCPCS: 93351

== ENCOUNTER → 2023-01-27 | Outpatient (CLI) | payer BC ==
--- NOTE | 2023-01-27 10:52 | BD ---
EXAMINATION TYPE: Axial Bone Density DATE OF EXAM: 01/27/2023 CLINICAL HISTORY: 62 years old Female. ICD-10 CODE: M810 AGE RELATED OSTEO Height: 65.5 Weight: 137 FRAX RISK QUESTIONS: Alcohol (3 or more units per day): no Family History (Parent hip fracture): no Glucocorticoids (More than 3mos): no History of Fracture in Adulthood: no Secondary Osteoporosis: 1. Type 1 Diabetes: no 2. Hyperthyroidism: no 3. Menopause before 45: no 4. Malnutrition: no 5. Chronic liver disease: no Rheumatoid Arthritis: no Current Tobacco Use: no RISK FACTORS HISTORY OF: Hip Fracture (Right/Left): no Spine Fracture: no History of Wrist Fracture: no Surgery to Spine/Hip(right/left)/Wrist (right/left): no Family History of Osteoporosis: Mother Active: yes Diet low in dairy products/other sources of calcium: yes Postmenopausal woman: yes Take estrogen and/or progesterone medications: no Lost more than 2 inches in height since high school: no Frequent falls: no Poor Health: no Hyperparathyroidism: no Adrenal Insufficiency: no MEDICATIONS: Prednisone or other steroids: no Thyroid Medications: no Osteoporosis Medications: Prolia 2 times a year How Long: Past 5 years Additional Medications: Vit D Additional History: EXAM MEASUREMENTS: Bone mineral densitometry was performed using the VIAP System. Bone mineral density as measured about the Lumbar spine is: ----- L1-L4(G/cm2): 1.022 T Score Values are as follows: ----- L1: -1.2 ----- L2: -0.9 ----- L3: -1.0 ----- L4: -2.1 ----- L1-L4: -1.3 Z Score Values are as follows: ----- L1: 0.2 ----- L2: 0.4 ----- L3: 0.3 ----- L4: -0.8 ----- L1-L4: 0.0 Baseline Study Bone mineral density about the R hip (g/cm2): 0.844 Bone mineral density about the L hip (g/cm2): 0.824 T Score values are as follows: -----R Neck: -1.8 -----L Neck: -2.0 -----R Total: -1.3 -----L Total: -1.5 Z Score values are as follows: -----R Neck: -0.5 -----L Neck: -0.7 -----R Total: -0.3 -----L Total: -0.4 Baseline Study FRAX%s: The graph provided illustrates a 9.4% chance for a major osteoporotic fx and a 1.3% chance fo r the hips probability for fx in 10 years time. IMPRESSION: Osteopenia (T Score between -2.5 and -1). There is slightly increased risk of fracture and the patient may be considered for treatment. Re-Screen 2-5 years. NOTE: T-SCORE=SD OF THE YOUNG ADULT MEAN.
--- NOTE | 2023-01-28 07:45 | MM ---
Reason for Exam: Screening (asymptomatic). Last mammogram was performed 1 year(s) and 1 month(s) ago. Patient History: Menarche at age 17. First Full-Term at age 28. Postmenopausal. Risk Values: Stephanie 5 year model risk: 1.5%. NCI Lifetime model risk: 7.4%. Prior Study Comparison: 02/02/2019 Screening Mammogram, [facility]. 05/30/2020 Screening Mammogram, [facility]. 12/11/2021 Bilateral Screening Mammogram, [facility]. Tissue Density: The breast tissue is heterogeneously dense. This may lower the sensitivity of mammography. Findings: Analyzed By CAD. Inferior subareolar nodular asymmetric density on the left appears more defined and incompletely disperses on 3-D images. However, no clear correlate on the CC view. This may represent superimposition shadow but further evaluation is recommended. Otherwise, no significant change. Overall Assessment: Incomplete: need additional imaging evaluation, BI-RAD 0 Management: Special View Mammogram of the left breast. Diagnostic Breast Ultrasound of the left breast. Additional views to include spot 3-D MLO and 3-D lateral views. Targeted left breast ultrasound if any persisting abnormality. [facility] will attempt to contact patient to return for supplemental views and ultrasound if indicated. Electronically signed and approved by: Sage Klein M.D. Radiologist
== END | disposition home or self-care (01) ==
LOC: RADMAMWWP 08:05
PROVIDERS: ATTEND Obstetrics & Gynecology
DX: Z12.31 Encounter for screening mammogram for malignant neoplasm of breast (principal); M81.0 Age-related osteoporosis without current pathological fracture; M85.89 Other specified disorders of bone density and structure, multiple sites; Z78.0 Asymptomatic menopausal state
CPT/HCPCS: 77063; 77067; 77080

== ENCOUNTER → 2023-01-30 | Outpatient (CLI) | payer BC ==
--- NOTE | 2023-01-30 13:23 | USB ---
Reason for Exam: Additional evaluation requested from abnormal screening. Patient History: Menarche at age 17. First Full-Term at age 28. Postmenopausal. Risk Values: Stephanie 5 year model risk: 1.5%. NCI Lifetime model risk: 7.4%. Technique: Method: Targeted. Prior Study Comparison: 05/30/2020 Screening Mammogram, [facility]. 12/11/2021 Bilateral Screening Mammogram, [facility]. 01/27/2023 Bilateral MG 3D screening mammo w/cad, [facility]. Findings: The axilla of the left breast and the retroareolar of the left breast were scanned. No solid or cystic masses are identified. Mildly prominent duct is seen. Overall Assessment: Benign, BI-RAD 2 Management: Screening Mammogram of both breasts in 1 year. A clinical breast exam by your physician is recommended on an annual basis and results should be correlated with mammographic findings. This exam should not preclude additional follow-up of suspicious palpable abnormalities. Results were given to the patient verbally at the time of exam. Electronically signed and approved by: Rudy Das M.D. Radiologis
--- NOTE | 2023-01-30 15:36 | MM ---
Reason for Exam: Hx of benign breast biopsy. Last screening mammogram was performed less than 1 month ago. Patient History: Menarche at age 17. First Full-Term at age 28. Postmenopausal. Risk Values: Stephanie 5 year model risk: 1.5%. NCI Lifetime model risk: 7.4%. Prior Study Comparison: 05/30/2020 Screening Mammogram, [facility]. 12/11/2021 Bilateral Screening Mammogram, [facility]. 01/27/2023 Bilateral MG 3D screening mammo w/cad, [facility]. Tissue Density: Left: The breast tissue is heterogeneously dense. This may lower the sensitivity of mammography. Findings: Analyzed By CAD. Retroareolar density is less conspicuous. Ultrasound over is advised. Overall Assessment: Incomplete: need additional imaging evaluation, BI-RAD 0 Management: Diagnostic Breast Ultrasound of the left breast. . Results were given to the patient verbally at the time of exam. Patient should continue monthly self-breast exams. A clinical breast exam by your physician is recommended on an annual basis. This exam should not preclude additional follow-up of suspicious palpable abnormalities. Note on Stephanie scores and lifetime risk: 1. A Stephanie score greater than 3% is considered moderate risk. If this is the case, consider specialist referral to assess eligibility for a risk reducing agent. 2. If overall lifetime risk for the development of breast cancer is 20% or higher, the patient may qualify for future screening with alternating mammogram and breast MRI. Electronically signed and approved by: Rudy Das M.D. Radiologis
== END | disposition home or self-care (01) ==
LOC: RADMAMWWP 08:57
PROVIDERS: ATTEND Obstetrics & Gynecology
DX: R92.8 Other abnormal and inconclusive findings on diagnostic imaging of breast (principal); Z78.0 Asymptomatic menopausal state
CPT/HCPCS: 77061; 77065

== ENCOUNTER → 2023-04-24 | Outpatient (CLI) | payer BC ==
--- NOTE | 2023-04-27 14:50 | CT ---
EXAMINATION TYPE: CT brain wo con DATE OF EXAM: 04/24/2023 COMPARISON: 02/28/2022 HISTORY: 62-year-old female Other amnesia, possibly medication induced. TECHNIQUE: Examination was done in axial plane without intravenous contrast. Coronal and sagittal r econstructions performed. CT DLP: 1184.90 mGycm Automated exposure control for dose reduction was used. FINDINGS: There is no evidence of acute intracranial hemorrhage, acute ischemic changes, mass, mass-effect, or extra-axial fluid collection. There is no effacement of cerebral sulci or basal subarachnoid cister ns. There is no hydrocephalus. There is no midline shift. Jauregui-white matter distinction is preserv ed. Mild volume loss along the bifrontal convexities. Moderate mucosal thickening scattered throughout the ethmoid air cells and frontal sinuses. Mild muco karlos thickening maxillary sinuses. Prior FESS. Orbits and globes are intact. Mastoid air cells well pn eumatized. IMPRESSION: Mild bifrontal cerebral cortical volume loss. No acute intracranial abnormality seen. Mild to moderat e chronic ethmoid and frontal sinus disease. Evidence of prior FESS.
== END | disposition home or self-care (01) ==
LOC: RADCTMAIN 13:37
PROVIDERS: ATTEND Internal Medicine Geriatric Medicine
DX: J32.2 Chronic ethmoidal sinusitis (principal); J32.1 Chronic frontal sinusitis; G93.89 Other specified disorders of brain; R41.3 Other amnesia
CPT/HCPCS: 70450

== ENCOUNTER → 2023-06-17 | Outpatient (CLI) | payer BC ==
[2023-06-17 16:26] LABS: Appearance,Urine Turbid (Clear); Bilirubin,Urine Negative (Negative); Blood,Urine Negative (Negative); Color,Urine Dark Yellow (Yellow); Ketones,Urine Negative (Negative); Nitrite,Urine Negative (Negative); Specific Gravity,Urine 1.025 (1.001-1.030)
[2023-06-17 16:31] LABS: Bacteria,Urine None Seen (None Seen)
[2023-06-17 17:09] LABS: HGB 14.3 g/dL (12.0-15.0); MCH 30.4 pg (27.0-32.0); MCHC 31.8 g/dL (32.0-37.0); MCV 95.7 FL (80.0-97.0); Mean Platelet Volume 9.9 FL (9.5-12.2); NRBC Per 100 WBC 0 X 10*3/uL (0.00-0.01); Platelet Count 303 X 10*3/uL (140-440); RDW 12.6 % (11.5-14.5); WBC 6.03 X 10*3/uL (4.50-10.00)
[2023-06-17 17:23] LABS: ALT 19 U/L (8-44); AST 23 U/L (13-35); Albumin 4.4 g/dL (3.8-4.9); Alkaline Phosphatase 51 U/L (41-126); BUN/Creat Ratio 11.38 Ratio (12.00-20.00); Blood Urea Nitrogen 9.1 mg/dL (9.0-27.0); Calcium 9.3 mg/dL (8.7-10.3); Carbon Dioxide 23.4 mmol/L (21.6-31.8); Chloride 105 mmol/L (96-109); Chol/HDL Ratio 3.77 Ratio; Globulin 2.2 g/dL (1.6-3.3); Glucose 104 mg/dL (70-110); LDL Cholesterol,Calculated 162.1 mg/dL (0.0-131.0); Potassium 4.1 mmol/L (3.5-5.5); Sodium 140 mmol/L (135-145); T4, Free (Free Thyroxine) 0.93 ng/dL (0.80-1.80); Total Bilirubin 0.4 mg/dL (0.3-1.2); Total Protein 6.6 g/dL (6.2-8.2)
== END | disposition home or self-care (01) ==
LOC: LABWHC1 08:03
PROVIDERS: ATTEND Psychiatry & Neurology Neurology
DX: Z00.01 Encounter for general adult medical examination with abnormal findings (principal); R41.3 Other amnesia
CPT/HCPCS: 36415; 80053; 80061; 81001; 82533; 82607; 82746; 84439; 84443; 85027; 87086

== ENCOUNTER → 2023-06-29 | Outpatient (CLI) | payer BC ==
--- NOTE | 2023-06-29 12:44 | MR ---
EXAMINATION TYPE: MR brain wo/w con DATE OF EXAM: 06/29/2023 12:34 PM COMPARISON: NONE HISTORY: Memory loss CONTRAST: Patient received 6 mL intravenous Gadavist gadolinium contrast. Multiplanar and multispin-echo imaging of the brain was performed . Pre and post contrast enhanced i mages are obtained. The ventricles, basal cisterns and sulci overlying the cerebral convexities are mildly enlarged. There is evidence of mild periventricular white matter ischemic demyelination. Remote deep white matter insults are also noted. No acute edema is seen on diffusion weighted imaging. There is no evidence for midline shift or mass effect. Acute intracranial hemorrhage or extra-axial collection is not evident. No enhancing lesions are seen. The paranasal sinuses and mastoid air cells are well-aerated. IMPRESSION: Age-related atrophic and chronic small vessel ischemic change. No acute intracranial process at this time. No enhancing lesions are seen.
== END | disposition home or self-care (01) ==
LOC: RADMRIMAIN 11:35
PROVIDERS: ATTEND Psychiatry & Neurology Neurology
DX: I67.82 Cerebral ischemia (principal); G31.9 Degenerative disease of nervous system, unspecified
CPT/HCPCS: 70553; A9585

== ENCOUNTER → 2023-11-25 | Outpatient (CLI) | payer BC ==
--- NOTE | 2023-11-25 14:37 | USB ---
Patient History: Menarche at age 17. First Full-Term at age 28. Postmenopausal. Risk Values: Stephanie 5 year model risk: 1.5%. NCI Lifetime model risk: 7.2%. Technique: Method: Targeted. Prior Study Comparison: 12/11/2021 Bilateral Screening Mammogram, [facility]. 01/27/2023 Bilateral MG 3D screening mammo w/cad, [facility]. 01/30/2023 Left MG 3D work up w/cad , [facility]. Findings: The upper outer quadrant of the left breast, the axilla of the left breast and the retroareolar of the left breast were scanned. No solid or cystic masses are identified.. Overall Assessment: Negative, BI-RAD 1 Management: Screening Mammogram of both breasts in 1 year. A clinical breast exam by your physician is recommended on an annual basis and results should be correlated with mammographic findings. This exam should not preclude additional follow-up of suspicious palpable abnormalities. Results were given to the patient verbally at the time of exam. Electronically signed and approved by: Austin Jefferson D.O. Radiologis
== END | disposition home or self-care (01) ==
LOC: RADUSWWP 13:36
PROVIDERS: ATTEND Obstetrics & Gynecology
DX: N64.4 Mastodynia (principal); Z78.0 Asymptomatic menopausal state
CPT/HCPCS: 77062; 77066

== ENCOUNTER → 2024-02-02 | Outpatient (CLI) | payer BC | END | disposition home or self-care (01) | LOC: RADMAMWWP 09:48 | PROVIDERS: ATTEND Family Medicine | DX: Z53.9 Procedure and treatment not carried out, unspecified reason (principal) ==

== ENCOUNTER → 2024-07-18 | Outpatient (CLI) | payer BC ==
--- NOTE | 2024-07-18 08:04 | USB ---
Reason for Exam: Clinical finding. Patient History: Menarche at age 17. First Full-Term at age 28. Postmenopausal. Risk Values: Stephanie 5 year model risk: 1.5%. NCI Lifetime model risk: 7.0%. Technique: Method: Whole Breast Handheld. Prior Study Comparison: 01/27/2023 Bilateral MG 3D screening mammo w/cad, [facility]. 01/30/2023 Left MG 3D work up w/cad LT, [facility]. 11/25/2023 Bilateral MG 3D diag mammo w/cad [facility], [facility]. Findings: The whole breast of the left breast, the axilla of the left breast and the retroareolar of the left breast were scanned. No solid or cystic masses are identified.. Overall Assessment: Negative, BI-RAD 1 Management: Screening Mammogram of both breasts in 5 months. A clinical breast exam by your physician is recommended on an annual basis and results should be correlated with mammographic findings. This exam should not preclude additional follow-up of suspicious palpable abnormalities. Results were given to the patient verbally at the time of exam. [facility], , 07/18/2024 8:00 AM. Electronically signed and approved by: Austin Jefferson D.O. Radiologis
--- NOTE | 2024-07-18 08:05 | MM ---
Reason for Exam: Clinical finding. Last screening mammogram was performed 8 month(s) ago. Indicated Problems: Pain of the left side (Global) for 8 Month(s). Patient History: Menarche at age 17. First Full-Term at age 28. Postmenopausal. Risk Values: Stephanie 5 year model risk: 1.5%. NCI Lifetime model risk: 7.0%. Prior Study Comparison: 01/27/2023 Bilateral MG 3D screening mammo w/cad, [facility]. 01/30/2023 Left MG 3D work up w/cad LT, [facility]. 11/25/2023 Bilateral MG 3D diag mammo w/cad [facility], [facility]. Tissue Density: Left: There are scattered areas of fibroglandular density. Analyzed By CAD. Overall Assessment: Incomplete: need additional imaging evaluation, BI-RAD 0 Management: Diagnostic Breast Ultrasound Electronically signed and approved by: Austin Jefferson D.O. Radiologis
== END | disposition home or self-care (01) ==
LOC: RADMAMWWP 06:56
PROVIDERS: ATTEND Obstetrics & Gynecology
DX: N64.4 Mastodynia (principal); R92.323 Mammographic fibroglandular density, bilateral breasts; Z78.0 Asymptomatic menopausal state
CPT/HCPCS: 77061; 77065

== ENCOUNTER 2024-08-14 17:00 | Emergency (ER) | payer BC ==
--- NOTE | 2024-08-14 17:29 | ED ---
Chest Pain HPI - General Chief Complaint: Chest Pain Stated Complaint: Allergic reaction, chest pain Time Seen by Provider: 08/14/24 17:10 Source: patient, family, RN notes reviewed, old records reviewed Mode of arrival: ambulatory Limitations: no limitations - History of Present Illness Initial Comments: This is a 64-year-old female to the ER for what she appears to think with an allergic reaction although her main complaint does appear to be chest pain. Patient had reflux indigestion and chest pain after [employer] when she got home she thought it may be something that she had eaten at [employer] and at that time she took a Pepcid and gave herself an EpiPen injection, her pain got better symptoms got better and then chest pain persisted. Patient presents with chest pain now left-sided chest pain to the jaw down the left arm Patient does admit to a history of CT with no prior heart catheterization or stress test MD Complaint: chest pain -: hour(s) Onset: during rest, after eating Pain Location: left chest Pain Radiation: jaw/teeth Severity: moderate Severity scale (1-10): 4 Quality: aching Consistency: constant Improves With: nothing Worsens With: nothing Other Symptoms: palpitations Treatments Prior to Arrival: none - Related Data Home Medications Medication Instructions Recorded Confirmed Denosumab [Prolia] 1 dose SQ Q180D 08/09/20 02/28/22 EPINEPHrine [Epipen 2-Subhash] 0.3 mg IM ONCE PRN 08/09/20 02/28/22 Mometasone/Formoterol [Dulera 200 2 puff INHALATION RT-BID 08/09/20 02/28/22 Mcg-5 Mcg Inhaler] Pentosan Polysulfate Sodium 100 mg PO DAILY 08/09/20 02/28/22 [Elmiron] Pentosan Polysulfate Sodium 200 mg PO HS 08/09/20 02/28/22 [Elmiron] Albuterol Nebulized [Ventolin 2.5 mg INHALATION RT-QID PRN 02/28/22 02/28/22 Nebulized] Albuterol Sulfate [Ventolin HFA] 1 - 2 puff INHALATION RT-Q6H PRN 02/28/22 02/28/22 Ascorbic Acid/Collagen Hydr 1 cap PO DAILY 02/28/22 02/28/22 [Collagen Plus Vit C Capsule] Sertraline [Zoloft] 25 mg PO DAILY 02/28/22 02/28/22 Previous Rx's Medication Instructions Recorded Aspirin 81 mg PO DAILY tab 03/01/22 Atorvastatin [Lipitor] 40 mg PO DAILY #30 tab 03/01/22 Allergies Allergy/AdvReac Type Severity Reaction Status Date / Time basil Allergy Allergy Verified 08/14/24 17:10 Testing cabbage Allergy Allergy Verified 08/14/24 17:10 Testing Cauliflower Allergy Allergy Verified 08/14/24 17:10 Testing clindamycin Allergy Anaphylaxis Verified 08/14/24 17:10 coconut Allergy Allergy Verified 08/14/24 17:10 Testing garlic Allergy Allergy Verified 08/14/24 17:10 Testing mold Allergy Cough Verified 08/14/24 17:10 Penicillins Allergy Anaphylaxis Verified 08/14/24 17:10 pollen extracts Allergy Cough Verified 08/14/24 17:10 ragweed pollen Allergy Cough Verified 08/14/24 17:10 shellfish derived [Crab] Allergy Allergy Verified 08/14/24 17:10 Testing starch Allergy Allergy Verified 08/14/24 17:10 Testing Sulfa (Sulfonamide Allergy Anaphylaxis Verified 08/14/24 17:10 Antibiotics) sulfamethoxazole Allergy Anaphylaxis Verified 08/14/24 17:10 [From Bactrim] trimethoprim [From Bactrim] Allergy Anaphylaxis Verified 08/14/24 17:10 walnut Allergy Allergy Verified 08/14/24 17:10 Testing yeast, dried Allergy Allergy Verified 08/14/24 17:10 Testing bay leaf Allergy Allergy Uncoded 08/14/24 17:10 Testing travon Allergy Allergy Uncoded 08/14/24 17:10 Testing caulk Allergy Allergy Uncoded 08/14/24 17:10 Testing pullularia Allergy Allergy Uncoded 08/14/24 17:10 Testing rhizopus Allergy Allergy Uncoded 08/14/24 17:10 Testing prydeinig cheese Allergy Allergy Uncoded 08/14/24 17:10 Testing white potato Allergy Allergy Uncoded 08/14/24 17:10 Testing Review of Systems ROS Statement: Those systems with pertinent positive or pertinent negative responses have been documented in the HPI. ROS Other: All systems not noted in ROS Statement are negative. EKG Findings - EKG Comments: EKG Findings:: EKG is bradycardic 59 HI 141 QRS 127 QTc 413 - EKG Results: EKG: interpreted by GERMAND Past Medical History Past Medical History: Asthma, GI Bleed, Myocardial Infarction (CT) Additional Past Medical History / Comment(s): Hiatal hernia, chairez's esophagus, bleeding ulcer as a teen, lower GI bleed, interstitial cystitis, osteoporosis., interstitial cystitis Last Myocardial Infarction Date:: 2021 History of Any Multi-Drug Resistant Organisms: None Reported Additional Past Surgical History / Comment(s): 09/12/20 EGD and colonoscopy, previous colonoscopy, sinus surgery. Past Anesthesia/Blood Transfusion Reactions: No Reported Reaction Past Psychological History: No Psychological Hx Reported Smoking Status: Former smoker Past Alcohol Use History: Rare Past Drug Use History: None Reported - Past Family History Mother Family Medical History: CVA/TIA, Hyperlipidemia Father Family Medical History: Dementia Additional Family Medical History / Comment(s): Father is . General Exam Limitations: no limitations General appearance: alert, in no apparent distress Head exam: Present: atraumatic, normocephalic, normal inspection Eye exam: Present: normal appearance, PERRL, EOMI. Absent: scleral icterus, conjunctival injection, periorbital swelling ENT exam: Present: normal exam, mucous membranes moist Neck exam: Present: normal inspection. Absent: tenderness, meningismus, lymphadenopathy Respiratory exam: Present: normal lung sounds bilaterally. Absent: respiratory distress, wheezes, rales, rhonchi, stridor Cardiovascular Exam: Present: regular rate, normal rhythm, normal heart sounds. Absent: systolic murmur, diastolic murmur, rubs, gallop, clicks GI/Abdominal exam: Present: soft, normal bowel sounds. Absent: distended, tenderness, guarding, rebound, rigid Extremities exam: Present: normal inspection, full ROM, normal capillary refill. Absent: tenderness, pedal edema, joint swelling, calf tenderness Back exam: Present: normal inspection Neurological exam: Present: alert, oriented X3, CN II-XII intact Psychiatric exam: Present: normal affect, normal mood Skin exam: Present: warm, dry, intact, normal color. Absent: rash Course Vital Signs 08/14/24 17:05 Temperature 98.3 F Pulse Rate 69 Respiratory 16 Rate Blood Pressure 129/79 O2 Sat by Pulse 100 Oximetry - Reevaluation(s) Reevaluation #1: 08/14/24 17:39 Medical records reviewed Reevaluation #4: Was pt. sent in by a medical professional or institution (SHARRON Adams, FILING CLERK, urgent care, hospital, or custodial...) When possible be specific @ -no Did you speak to anyone other than the patient for history (EMS, parent, family, police, friend...)? What history was obtained from this source @ -no Did you review nursing and triage notes (agree or disagree)? Why? @ -agree Are old charts reviewed (outside hosp., previous admission, EMS record, old EKG, old radiological studies, urgent care reports/EKG's, custodial records)? Report findings @ -yes Differential Diagnosis (chest pain, altered mental status, abdominal pain women, abdominal pain men, vaginal bleeding, weakness, fever, dyspnea, syncope, headache, dizziness, GI bleed, back pain, seizure, CVA, palpatations, mental health, musculoskeletal)? @ -prior EKG interpreted by me (3pts min.). @ -yes X-rays interpreted by me (1pt min.). @ -yes negative for acute disease CT interpreted by me (1pt min.). @ -no U/S interpreted by me (1pt. min.). @ -no What testing was considered but not performed or refused? (CT, X-rays, U/S, labs)? Why? @ -none What meds were considered but not given or refused? Why? @ -none Did you discuss the management of the patient with other professionals (professionals i.e. SHARRON Adams, FILING CLERK, lab, RT, psych nurse, clinical social worker, utilities service investigator, teacher, ammunition officer, watch case polisher)? Give summary @ -no Was smoking cessation discussed for >3mins.? @ -no Was critical care preformed (if so, how long)? @ -no Were there social determinants of health that impacted care today? How? (Homelessness, low income, unemployed, alcoholism, drug addiction, transportation, low edu. Level, literacy, decrease access to med. care, senior care, rehab)? @ -none Was there de-escalation of care discussed even if they declined (Discuss DNR or withdrawal of care, Hospice)? DNR status @ -no What co-morbidities impacted this encounter? (DM, HTN, Smoking, COPD, CAD, Cancer, CVA, ARF, Chemo, Hep., AIDS, mental health diagnosis, sleep apnea, morbid obesity)? @ -none Was patient admitted / discharged? Hospital course, mention meds given and route, prescriptions, significant lab abnormalities, going to OR and other pertinent info. @ - Undiagnosed new problem with uncertain prognosis? @ -no Drug Therapy requiring intensive monitoring for toxicity (Heparin, Nitro, Insulin, Cardizem)? @ -no Were any procedures done? @ -no Diagnosis/symptom? @ - Acute, or Chronic, or Acute on Chronic? @ -Acute Uncomplicated (without systemic symptoms) or Complicated (systemic symptoms)? @ -Complicated Side effects of treatment? @ -no Exacerbation, Progression, or Severe Exacerbation? @ -exacerbation Poses a threat to life or bodily function? How? (Chest pain, USA, CT, pneumonia, PE, COPD, DKA, ARF, appy, cholecystitis, CVA, Diverticulitis, Homicidal, Suicidal, threat to staff... and all critical care pts) @ -yes Reevaluation #5: Differential Chest Pain: Stable Angina, Unstable Angina, STEMI, NSTEMI Aortic Dissection, Pneumothorax, Musculoskeletal, Esophageal Spasm GERD, Cholecystitis, Pancreatitis, Zoster, this is not meant to be an all-inclusive list. Disposition Clinical Impression: Chest pain Disposition: HOME SELF-CARE Condition: Fair Instructions (If sedation given, give patient instructions): Chest Pain (ED) Is patient prescribed a controlled substance at d/c from ED?: No Referrals: Mark Cruz MD [Primary Care Provider] - 1-2 days Time of Disposition: 20:30
[2024-08-14] MEDS: hydrOXYzine HCL 25 MG TAB PO STA (17:46)
[2024-08-14] MEDS: SODIUM CHLORIDE 0.9% 1,000 ML IV STA (17:47)
[2024-08-14] MEDS: DEXAMETHASONE SOD PHOSPHATE 10 MG/ML 1 ML VIAL IVP STA (17:49)
[2024-08-14] MEDS: diphenhydrAMINE 50 MG/ML 1 ML VIAL IVP STA (17:49)
[2024-08-14 18:19] LABS: Basophils # (A) 0.1 k/uL (0-0.2); Basophils % (A) 1 %; Eosinophils # (A) 0.4 k/uL (0-0.7); Eosinophils % (A) 5 %; HGB 14.3 gm/dL (11.4-16.0); Lymphocytes # (A) 1.8 k/uL (1.0-4.8); Lymphocytes % (A) 24 %; MCH 30.3 pg (25.0-35.0); MCHC 32.5 g/dL (31.0-37.0); MCV 93.5 fL (80.0-100.0); Monocytes # (A) 0.4 k/uL (0-1.0); Monocytes % (A) 5 %; Neutrophils # (A) 4.7 k/uL (1.3-7.7); Neutrophils % (A) 63 %; Platelet Count 295 k/uL (150-450); RBC 4.71 m/uL (3.80-5.40); RDW 13.1 % (11.5-15.5); WBC 7.4 k/uL (3.8-10.6)
--- NOTE | 2024-08-14 18:21 | XR ---
EXAMINATION TYPE: XR chest 2V DATE OF EXAM: 08/14/2024 6:09 PM COMPARISON: Previous chest radiograph 02/28/2022. CLINICAL INDICATION: Female, 64 years old with history of cp; [facility] TECHNIQUE: XR chest 2V Frontal and lateral views of the chest. FINDINGS: Lungs/Pleura: There is no evidence of pleural effusion, focal consolidation, or pneumothorax. Pulmonary vascularity: Unremarkable. Heart/mediastinum: Cardiomediastinal silhouette is unremarkable. Musculoskeletal: No acute osseous pathology. Other findings: None IMPRESSION: No acute cardiopulmonary disease/process. [facility], , 08/14/2024 6:19 PM
[2024-08-14 18:25] LABS: Partial Thromboplastin Time 24.1 sec (22.0-30.0); Prothrombin Time 10.6 sec (10.0-12.5)
[2024-08-14 18:35] LABS: ALT 47 U/L (4-34); AST 102 U/L (14-36); African American GFR (CKD) 82 (>60 ml/min/1.73 sqM); Albumin 4.5 g/dL (3.5-5.0); Alkaline Phosphatase 109 U/L (38-126); Anion Gap 7 mmol/L; Blood Urea Nitrogen 11 mg/dL (7-17); Calcium 10.6 mg/dL (8.4-10.2); Carbon Dioxide 29 mmol/L (22-30); Chloride 101 mmol/L (98-107); Glucose 114 mg/dL (74-99); Lipase 292 U/L (23-300); Non-African American GFR(CKD) 71 (>60 ml/min/1.73 sqM); Potassium 3.8 mmol/L (3.5-5.1); Sodium 137 mmol/L (137-145); Total Bilirubin 0.3 mg/dL (0.2-1.3); Total Protein 6.8 g/dL (6.3-8.2)
[2024-08-14 18:42] LABS: NT-Pro-B-Type Natriuretic Pept 48 pg/mL
[2024-08-14 21:03] VITALS: BP 111/77; PULSE 60; RESP 15; TEMP 98
== END 2024-08-14 20:57 | disposition home or self-care (01) ==
LOC: EC 17:00
DX: R07.9 Chest pain, unspecified (principal); Z87.891 Personal history of nicotine dependence; Z88.0 Allergy status to penicillin; Z88.1 Allergy status to other antibiotic agents; Z91.018 Allergy to other foods; Z91.048 Other nonmedicinal substance allergy status; Z77.120 Contact with and (suspected) exposure to mold (toxic); Z88.8 Allergy status to other drugs, medicaments and biological substances
CPT/HCPCS: 36415; 93005; 83880; 80053; 83690; 83735; 84484; 85025; 85610; 85730; 71046; 99285; 96374; 96375; 96361; J1200; J1100

== ENCOUNTER → 2024-10-14 | Outpatient (CLI) | payer BC ==
[2024-10-14 13:11] VITALS: BP 113/81; PULSE 64; RESP 17; TEMP 97.5
--- NOTE | 2024-10-14 13:41 | P.GSCN ---
History of Present Illness Consult date: 10/14/24 Reason for Consult: faustino Requesting physician: Sherman Danielle History of present illness: Lydia is a 64-year-old female seen in consultation for Dr. Chester Aranda regarding left breast pain. Patient had a bilateral mammogram performed on 11-25-23 BI-RADS 0 and led to a left breast ultrasound. Following the ultrasound no lesions of concern were identified and this was determined to be a BI-RADS the patient continued to have breast pain in the left side and a repeat left breast mammogram and ultrasound were performed in July 2024 after which no lesions of concern were identified and this was again a BI-RADS 1. The pain started over a year ago, it always in the same place in the UOQ of the breast. The patient does not complain of any trauma to the left breast. She has had no lumps masses or nodules of concern in that area. She has not had any infection to either breast. She has never had any surgery on her breast in the past. The pain is persistent in the upper outer quadrant of the left breast and is burning in nature, it is constant, it is worse with pressure. It does not appear to radiate anywhere. She does have some burning sensation in the left axilla as well. caffiene: occasional nicotine: none chocolate: occasional BCP: used many years ago for about 1 year hormones: none Family History: father: kidney Hormonal History: menarche: 17 A1 breast fed: yes, age at first : 29 menopause: 51 Surgical History: none Medical HIstory: food allergies Interstitial cystitis ? [place] asthma Social History: nicotine: 2 years in past alcohol: occasional drugs: none Note Dr. Dunn reviewed from 06-21-2024 Review of Systems - Constitutional Denies fever, Denies weight loss - EENT Eyes: denies blurred vision Ears: deny: decreased hearing, tinnitus Ears, nose, mouth and throat: Denies dysphagia - Breasts bilateral: as per HPI - Cardiovascular Denies chest pain, Denies shortness of breath - Respiratory Denies cough, Denies 7 - Gastrointestinal Gastrointestinal Comment(s): food allergies/ ulcer when younger Reports as per HPI - Genitourinary Genitourinary Comment(s): IBS Genitourinary: Reports as per HPI Menstruation: Reports postmenopausal - Musculoskeletal Reports as per HPI - Integumentary Denies rash, Denies unusual bruising - Neurological Denies headaches, Denies syncope - Psychiatric Reports as per HPI, Reports anxiety - Endocrine Reports as per HPI - Hematologic/Lymphatic Denies easy bleeding, Denies easy bruising - Allergic/Immunologic Reports seasonal allergies Past Medical History Past Medical History: Asthma, GI Bleed, Myocardial Infarction ([place]) Additional Past Medical History / Comment(s): Hiatal hernia, chairez's esophagus, bleeding ulcer as a teen, lower GI bleed, interstitial cystitis, osteoporosis., interstitial cystitis Last Myocardial Infarction Date:: 2021 History of Any Multi-Drug Resistant Organisms: None Reported Additional Past Surgical History / Comment(s): 09/12/20 EGD and colonoscopy, previous colonoscopy, sinus surgery. Past Anesthesia/Blood Transfusion Reactions: No Reported Reaction Past Psychological History: No Psychological Hx Reported Additional Psychological History / Comment(s): Pt resides alone. She is independent. Smoking Status: Former smoker Past Alcohol Use History: Rare Additional Past Alcohol Use History / Comment(s): Pt smoked for a brief time in her 20s. Past Drug Use History: None Reported - Past Family History Mother Family Medical History: CVA/TIA, Hyperlipidemia Father Family Medical History: Dementia Additional Family Medical History / Comment(s): Father is . Medications and Allergies Home Medications Medication Instructions Recorded Confirmed Type Denosumab [Prolia] 1 dose SQ Q180D 08/09/20 10/14/24 History EPINEPHrine [Epipen 2-Subhash] 0.3 mg IM ONCE PRN 08/09/20 10/14/24 History Mometasone/Formoterol [Dulera 200 2 puff INHALATION RT-BID 08/09/20 10/14/24 History Mcg-5 Mcg Inhaler] Pentosan Polysulfate Sodium 100 mg PO DAILY 08/09/20 10/14/24 History [Elmiron] Pentosan Polysulfate Sodium 200 mg PO HS 08/09/20 10/14/24 History [Elmiron] Albuterol Nebulized [Ventolin 2.5 mg INHALATION RT-QID PRN 02/28/22 10/14/24 History Nebulized] Albuterol Sulfate [Ventolin HFA] 1 - 2 puff INHALATION RT-Q6H PRN 02/28/22 10/14/24 History Ascorbic Acid/Collagen Hydr 1 cap PO DAILY 02/28/22 10/14/24 History [Collagen Plus Vit C Capsule] Sertraline [Zoloft] 25 mg PO DAILY 02/28/22 10/14/24 History Aspirin 81 mg PO DAILY tab 03/01/22 10/14/24 Rx Atorvastatin [Lipitor] 40 mg PO DAILY #30 tab 03/01/22 10/14/24 Rx Allergies Allergy/AdvReac Type Severity Reaction Status Date / Time basil Allergy Allergy Verified 10/14/24 13:05 Testing cabbage Allergy Allergy Verified 10/14/24 13:05 Testing Cauliflower Allergy Allergy Verified 10/14/24 13:05 Testing clindamycin Allergy Anaphylaxis Verified 10/14/24 13:05 coconut Allergy Allergy Verified 10/14/24 13:05 Testing garlic Allergy Allergy Verified 10/14/24 13:05 Testing mold Allergy Cough Verified 10/14/24 13:05 Penicillins Allergy Anaphylaxis Verified 10/14/24 13:05 pollen extracts Allergy Cough Verified 10/14/24 13:05 ragweed pollen Allergy Cough Verified 10/14/24 13:05 shellfish derived [Crab] Allergy Allergy Verified 10/14/24 13:05 Testing starch Allergy Allergy Verified 10/14/24 13:05 Testing Sulfa (Sulfonamide Allergy Anaphylaxis Verified 10/14/24 13:05 Antibiotics) sulfamethoxazole Allergy Anaphylaxis Verified 10/14/24 13:05 [From Bactrim] trimethoprim [From Bactrim] Allergy Anaphylaxis Verified 10/14/24 13:05 walnut Allergy Allergy Verified 10/14/24 13:05 Testing yeast, dried Allergy Allergy Verified 10/14/24 13:05 Testing bay leaf Allergy Allergy Uncoded 10/14/24 13:05 Testing travon Allergy Allergy Uncoded 10/14/24 13:05 Testing caulk Allergy Allergy Uncoded 10/14/24 13:05 Testing pullularia Allergy Allergy Uncoded 10/14/24 13:05 Testing rhizopus Allergy Allergy Uncoded 10/14/24 13:05 Testing croatian cheese Allergy Allergy Uncoded 10/14/24 13:05 Testing white potato Allergy Allergy Uncoded 10/14/24 13:05 Testing Surgical - Exam Vital Signs Temp Pulse Resp BP Pulse Ox 97.5 F L 64 17 113/81 99 10/14/24 13:06 10/14/24 13:06 10/14/24 13:06 10/14/24 13:06 10/14/24 13:06 - General no distress - Eyes normal ocular movement - ENT no hearing loss - Neck trachea midline - Respiratory normal respiratory effort, clear to auscultation - Cardiovascular Rhythm: regular Heart Sounds: normal: S1, S2 - Abdomen Abdomen: soft, non tender, no guarding, no rigid, no rebound - Integumentary normal turgor - Neurologic no disoriented, no combative - Musculoskeletal normal gait - Psychiatric oriented to time, oriented to person, oriented to place, speech is normal, memory intact Breast Exam: BRA: 36DD Inspection: bilateral grade 2/3 ptosis Palpation; Right breast: Multi positional exam no dominant masses or nodules of concern Fibrocystic changes Right axilla: No adenopathy of concern Left breast: Multi positional exam no discrete dominant masses or nodules of concern, fibrocystic changes, increased breast parenchyma in the upper outer quadrant area which is mildly tender to palpation, however the patient has tenderness to the left chest wall with palpation with some radiation to the posterior back with palpation of the chest wall Left axilla: No adenopathy of concern Results Bilateral mammogram and left breast ultrasound 07-18-2024 BI-RADS 1 Assessment and Plan Assessment: Impression: Left breast/chest wall mastodynia The pain started after the patient was admitted to the hospital with chest discomfort Fibrocystic breast changes Bilateral mammogram left breast ultrasound from 07-18-24 BIRAD 1 Is nothing on physical examination or radiographically which would warrant interventional left breast biopsy Plan: We have discussed lifestyle modifications at this time she does not smoke she does not drink caffeinated products but she will try primrose oil We are going to try physical therapy as it does appear that she has some discomfort related to her left shoulder with radiation down the arm and radiation into the area of the chest wall CC: Lolis Cruz
[2024-10-14 13:57] LABS: Glucose,Whole Blood 168 mg/dL (70-110)
== END ==
LOC: WWCWWP 12:43
PROVIDERS: ATTEND Surgery
DX: N64.4 Mastodynia (principal); N60.19 Diffuse cystic mastopathy of unspecified breast; I25.2 Old myocardial infarction; M81.0 Age-related osteoporosis without current pathological fracture; K92.2 Gastrointestinal hemorrhage, unspecified; Z87.19 Personal history of other diseases of the digestive system; Z87.891 Personal history of nicotine dependence; Z91.018 Allergy to other foods; Z88.0 Allergy status to penicillin; Z88.1 Allergy status to other antibiotic agents; Z77.120 Contact with and (suspected) exposure to mold (toxic); Z91.048 Other nonmedicinal substance allergy status; Z91.013 Allergy to seafood; Z88.2 Allergy status to sulfonamides